=== PATIENT | male | born 1995 | race Caucasian/White ===

== ENCOUNTER 2021-05-31 22:48 | Emergency (ER) | payer BC, SELFPAY ==
[2021-05-31 22:48] VITALS: BP 96/55; PULSE 106; RESP 16; TEMP 37.1; O2SAT 100; BMI 33.7
[2021-05-31 23:57] LABS: Influenza A, PCR Not Detected (NotDetected); Influenza B, PCR Not Detected (NotDetected)
[2021-05-31 23:57] LABS: Microscopic, Urine URINE MICROSCOPIC (MICROSCOPIC)
[2021-06-01 00:02] LABS: Appearance,Urine CLEAR (Clear); Bilirubin,Urine Negative (Negative); Blood, Urine Negative (Negative); Color,Urine YELLOW (Yellow); Glucose,Urine (UA) Negative (Negative); Ketones,Urine Negative (Negative); Leukocyte Esterase,Urine Negative (Negative); Nitrate,Urine Negative (Negative); Protein,Urine TRACE (Negative)
[2021-06-01 00:17] LABS: Bacteria,Urine Trace /lpf; RBC,Urine Occasional #/hpf (0-3); WBC,Urine Occasional #/hpf (0-3)
--- NOTE | 2021-06-01 00:31 | XR_ITS ---
PROCEDURE INFORMATION: Exam: XR Chest Exam date and time: 06/01/2021 12:31 AM Age: 25 years old Clinical indication: Cough and fever and other: Chills; Patient HX: Fever, chills, body aches; Additional info: Congestion TECHNIQUE: Imaging protocol: XR of the chest. Views: 2 views. COMPARISON: No relevant prior studies available. FINDINGS: Lungs: Unremarkable. No consolidation. Pleural spaces: Unremarkable. No pleural effusion. No pneumothorax. Heart/Mediastinum: Unremarkable. No cardiomegaly. Bones/joints: Unremarkable. IMPRESSION: No acute findings.
[2021-06-01 00:53] LABS: Basophils % 0.4 % (0.1-2.0); Eosinophils % 0.5 % (0.1-12.0); Hematocrit 45.1 % (42.0-52.0); Hemoglobin 15.1 g/dL (14.1-18.0); Lymphocytes # 0.3 K/mm3 (0.7-4.5); Lymphocytes % 3.7 % (10-50); Mean Corpuscular HGB Conc 33.5 g/dL (31.8-35.4); Mean Corpuscular Hemoglobin 28.6 pg (27.0-31.2); Mean Corpuscular Volume 85.3 fl (80-94); Monocytes # 0.6 K/mm3 (0.1-1.0); Monocytes % 7.2 % (1.7-9.3); Neutrophils # 7.2 K/mm3 (1.8-7.8); Neutrophils % 88.2 % (37.0-80.0); Platelet Count 311 K/mm3 (142-424); Red Blood Count 5.28 M/mm3 (4.60-6.20); Red Cell Distribution Width 13.4 % (11.5-17.5); White Blood Count 8.1 K/mm3 (4.8-10.8)
[2021-06-01 00:57] LABS: Chloride 103 mmol/L (98-107); Sodium 139 mmol/L (136-145)
[2021-06-01 00:58] LABS: Potassium 4.4 mmoL/L (3.5-5.1)
[2021-06-01 01:00] LABS: Alanine Aminotransferase 33 U/L (12-78); Albumin Level 4.6 g/dl (3.5-5.0); Albumin/Globulin Ratio 1.5 (1.1-1.8); Alkaline Phosphatase 73 U/L (38-126); Anion Gap 14.4 mEq/L (5-15); Aspartate Amino Transferase 34 U/L (17-59); Bilirubin,Total 0.2 mg/dl (0.2-1.3); Blood Urea Nitrogen 15 mg/dl (9-20); Carbon Dioxide 26 mmol/L (22.0-30.0); Creatinine Clearance Estimated 173 mL/min (50-200); Estimated Glomerular Filt Rate 93 ml/min (>60); GFR (African American) 112 ML/MIN (>60); Globulin 3.1 g/dL (1.3-3.2); Total Protein,Serum 7.7 g/dl (6.3-8.2)
[2021-06-01 01:01] LABS: Calcium 9.3 mg/dl (8.4-10.2); Glucose 104 mg/dl (74-100)
[2021-06-01 01:02] LABS: MANUAL DIFFERENTIAL MANUAL DIFFERENTIAL (MANUAL DIFF)
[2021-06-01 01:09] LABS: Coronavirus 19, PCR Detected (NotDetected)
[2021-06-01 01:32] LABS: Erythrocyte Sedimentation Rate 4 mm/hr (0-15)
[2021-06-01 01:40] LABS: Lymphocytes % 11 % (10-50); Monocytes % 1 % (2-9); Neutrophils % 88 % (42-76); Platelet Estimate Normal; Stomatocytes 2+; Total Cells Counted 100
--- NOTE | 2021-06-01 01:42 | HMH.EDURI ---
ED Disposition Clinical Impression: COVID-19 Disposition: Home, Self-Care Condition on Discharge: Good Instructions: DI for COVID-19 (Suspected or Confirmed ) Additional Instructions: fluids and call pcp for follow up Referrals: Kristin Barbosa [Primary Care Provider] - - Critical Care Critical Care Time: No Attestation: On 05/31/21, the high probability of a clinically significant, sudden or life threatening deterioration of the following system(s) required my full and direct attention, intervention and personal management. The time I documented below is in addition to time spent performing reported procedures but includes the following listed in this critical care notation. Medical Decision Making - Medical Records Medical records reviewed: Yes: I reviewed the patient's medical records. - Arley Inquiry Pt receiving controlled substance: No Vital Signs: 05/31/21 22:48 Temperature 98.7 F Temperature Source Oral Pulse Rate [Right] 106 H Respiratory Rate 16 Blood Pressure [Right Radial Artery] 96/55 L Blood Pressure Mean [Right Radial Artery] 68 02 Sat by Pulse Oximetry 100 Oxygen Delivery Method Room Air - Lab Data Lab results reviewed: Yes: I reviewed the patient's lab results. Lab Results 05/31/21 23:46: SARS-CoV-2 (PCR) Detected A, Influenza A Untype (PCR) Not detected, Influenza Type B (PCR) Not detected 05/31/21 23:50: Urine Color Yellow, Urine Appearance Clear, Urine pH 8.0, Ur Specific [place] 1.020, Urine Protein Trace, Urine Glucose (UA) Negative, Urine Ketones Negative, Urine Blood Negative, Urine Nitrate Negative, Urine Bilirubin Negative, Urine Urobilinogen 1.0, Ur Leukocyte Esterase Negative, Urine RBC Occasional, Urine WBC Occasional, Ur Squamous Epith Cells None, Urine Bacteria Trace 06/01/21 00:40: WBC 8.1, RBC 5.28, Hgb 15.1, Hct 45.1, MCV 85.3, MCH 28.6, MCHC 33.5, RDW 13.4, Plt Count 311, MPV 8.0, Neut % (Auto) 88.2 H, Lymph % (Auto) 3.7 L, [place] % (Auto) 7.2, Eos % (Auto) 0.5, Baso % (Auto) 0.4, Neut # (Auto) 7.2, Lymph # (Auto) 0.3 L, [place] # (Auto) 0.6, Eos # (Auto) 0.0, Baso # (Auto) 0.0, Total Counted 100, Neutrophils % (Manual) 88 H, Lymphocytes % (Manual) 11, Monocytes % (Manual) 1 L, Platelet Estimate Normal, RBC Morphology Not Reportable, Stomatocytes 2+, ESR 4 06/01/21 00:40: Sodium 139, Potassium 4.4, Chloride 103, Carbon Dioxide 26, Anion Gap 14.4, BUN 15, Creatinine 1.00, Estimated Creat Clear 173, Estimated GFR 93, Est GFR ( Amer) 112, Glucose 104 H, Calcium 9.3, Total Bilirubin 0.2, AST 34, ALT 33, Alkaline Phosphatase 73, C-Reactive Protein 3.0, Total Protein 7.7, Albumin 4.6, Globulin 3.1, Albumin/Globulin Ratio 1.5 Result diagrams: 06/01/21 00:40 06/01/21 00:40 Orders (Tests/Meds): ED MEDICATIONS Generic Name Dose Route Start Last Admin Trade Name Freq PRN Reason Stop Dose Admin Sodium Chloride 1,000 mls @ 999 mls/hr 06/01/21 00:45 06/01/21 00:49 Sod Chlor 0.9% 1000ml Bag IV 06/01/21 01:45 999 mls/hr .Q1H1M DESIREE Administration Discontinued Medications Generic Name Dose Route Start Last Admin Trade Name Freq PRN Reason Stop Dose Admin Dexamethasone Sodium Phosphate 10 mg 06/01/21 00:33 06/01/21 00:48 Dexamethasone 4mg/Ml 5ml Mdv IV 06/01/21 00:34 10 mg ONCE ONE Administration Ketorolac Tromethamine 30 mg 06/01/21 00:33 06/01/21 00:48 Ketorolac 30mg/Ml Vial IV 06/01/21 00:34 30 mg ONCE ONE Administration ORDERS Category Date Time Status C-Reactive Protein Stat Lab 06/01/21 00:40 Results Comprehensive Metabolic Panel Stat Lab 06/01/21 00:40 Results Procalcitonin Stat Lab 06/01/21 00:40 Results - Radiology Data #1 Image(s): Chest Image Reviewed: Yes I have reviewed radiologist's interpretation Preliminary Findings: Normal/NAD Medical Decision Narrative: has covid-19 but will not require admit at this time URI/Sore Throat HPI - General Chief Complaint: Upper Respiratory Infection Stat
[2021-06-01 01:52] LABS: Procalcitonin 0.194 ng/mL (0.0-2.0)
[2021-06-01 02:22] VITALS: BP 115/78; PULSE 91; RESP 18; TEMP 37.1; O2SAT 100
== END 2021-06-01 02:23 | disposition home or self-care (01) ==
PROVIDERS: Emergency Provider Emergency Medicine; PCP Nurse Practitioner Family
DX: U07.1 COVID-19 (principal)
CPT/HCPCS: 71046; 80053; 81001; 84145; 85007; 85025; 85651; 86140; 96365; 96375; 99283; C9803; U0003; U0005

== ENCOUNTER 2025-02-07 22:14 | Observation (INO) | payer OTHER, SELFPAY ==
[2025-02-07 22:15] VITALS: BP 174/92; PULSE 94; RESP 18; TEMP 36.6; O2SAT 98; BMI 38.0
--- NOTE | 2025-02-07 22:15 | ECG_ITS ---
APPROVED REPORT Exam: Resting ECG HR:102 bpm ECG Measurements Heart Rate 102 AXES CA 143 P 35 QRSd 96 QRS 78 QT 314 T 20 QTc 373 Conclusion SINUS TACHYCARDIA ABNORMAL RHYTHM ECG No STEMI Electronically signed by : LITTLE DE ANDA, 02/08/2025 03:03:48
[2025-02-07 22:20] VITALS: PULSE 94
--- NOTE | 2025-02-07 23:08 | XR_ITS ---
PROCEDURE INFORMATION: Exam: XR Chest Exam date and time: 02/07/2025 11:09 PM Age: 29 years old Clinical indication: Sternal or substernal pain; Additional info: Cp TECHNIQUE: Imaging protocol: Radiologic exam of the chest. Views: 2 views. COMPARISON: CR XR CHEST 2V 06/01/2021 12:40 AM FINDINGS: Lungs: Normal pulmonary expansion. Pulmonary vasculature grossly normal. No gross pulmonary infiltrates or edema pattern. Pleural spaces: No pleural effusion. No pneumothorax. Heart/Mediastinum: Heart size normal. No tracheal/mediastinal shift. Bones/joints: No acute osseous abnormalities are identified. IMPRESSION: No acute thoracic process.
[2025-02-07 23:15] LABS: Albumin Level 4.9 g/dl (3.5-5.0); Basophils % 0.2 % (0.1-2.0); Chloride 104 mmol/L (98-107); Eosinophils % 0.3 % (0.1-12.0); Hematocrit 46.5 % (42.0-52.0); Hemoglobin 15.5 g/dL (14.1-18.0); Immature Granulocytes # 0.04 10^3uL; Immature Granulocytes % 0.4 %; Lymphocytes # 1.4 K/mm3 (0.7-4.5); Lymphocytes % 15.3 % (10-50); Mean Corpuscular HGB Conc 33.3 g/dL (31.8-35.4); Mean Corpuscular Hemoglobin 27.8 pg (27.0-31.2); Mean Corpuscular Volume 83.3 fl (80-94); Mean Platelet Volume 9.8 fl (7.4-10.4); Monocytes # 0.9 K/mm3 (0.1-1.0); Monocytes % 10.2 % (1.7-9.3); Neutrophils # 6.7 K/mm3 (1.8-7.8); Neutrophils % 73.6 % (37.0-80.0); Nucleated Red Blood Cells # 0 10^3/uL; Nucleated Red Blood Cells % 0 %; Platelet Count 323 K/mm3 (142-424); Red Blood Count 5.58 M/mm3 (4.60-6.20); Red Cell Distribution Width-SD 39.4 fL; Sodium 139 mmol/L (136-145)
[2025-02-07 23:16] LABS: Potassium 3.9 mmoL/L (3.5-5.1)
[2025-02-07 23:18] LABS: Alanine Aminotransferase 50 U/L (12-78); Albumin/Globulin Ratio 1.6 (1.1-1.8); Alkaline Phosphatase 72 U/L (38-126); Anion Gap 10.9 mEq/L (5-15); Aspartate Amino Transferase 39 U/L (17-59); Bilirubin,Total 0.5 mg/dl (0.2-1.3); Blood Urea Nitrogen 12 mg/dl (9-20); Carbon Dioxide 28 mmol/L (22.0-30.0); Creatinine Clearance Estimated 189 mL/min (50-200); Estimated Glomerular Filt Rate 90 ml/min (>60); GFR (African American) 108 ML/MIN (>60); Glucose 91 mg/dl (74-100); Total Protein,Serum 7.9 g/dl (6.3-8.2)
[2025-02-07] MEDS: ASPIRIN 81MG CHEWABLE TABLET 324 MG PO (23:18)
[2025-02-07] MEDS: hydrOXYzine pamoate 25MG CAPSULE 50 MG PO (23:18)
[2025-02-07 23:19] LABS: Calcium 9.4 mg/dl (8.4-10.2)
[2025-02-07] MEDS: KETOROLAC 30MG/ML VIAL 15 MG IV (23:19)
[2025-02-07] MEDS: LACTATED RINGERS 1000ML 1,000 ML 999 ML IV (23:19)
[2025-02-07 23:21] LABS: INR 0.94 (0.9-1.1); Prothrombin Time 10.5 seconds (10.1-12.5)
[2025-02-07 23:31] LABS: Troponin I < 0.01 ng/ml (0.00-0.034)
--- NOTE | 2025-02-07 23:33 | PC.NURSE ---
pt aox4, nad noted, rr even and non labored, skin pwd.
--- NOTE | 2025-02-07 23:52 | HMH.EDCP ---
Discharge Plan Disposition Patient Disposition: Admitted Condition: Good Clinical Impressions Clinical Impression: Chest pain Discharge ED Provider: Kiki Baron [facility] General Chief Complaint: Chest Pain Stated Complaint: chest pain Time Seen by Provider: 02/07/25 22:58 Mode of Arrival: Ambulatory Source of Information: Patient Description of Symptoms (Recalled from ER Triage Doc. by RN): pt presents with c/o intermittent midsternal chest pain that began approx 1 hour ago while walking at home. Pt reports associated clammy and cool skin during episodes with BG 73 at time of triage. History of Present Illness HPI narrative: 29-year-old male with no known chronic medical conditions, no daily medications presents to the ER with intermittent midsternal chest pain that started approximately 4 hours prior to arrival. Patient reports he also gets shaky and has been having a headache. No difficulty breathing, abdominal pain, nausea, vomiting, diarrhea, or other associated symptoms. Female at bedside reports she thinks anxiety may be contributing to his symptoms. He states he would get himself calm down and the symptoms would improve but then they would start again. He denies any personal cardiac history, no recent illness, no fevers or chills, no other associated symptoms. Patient reports at this time he just has lingering headache which is diffuse throughout the head on both sides, not sudden in onset, no numbness, tingling, or weakness. Related Data Home Medications ?Medication ?Instructions ?Recorded ?Confirmed No Known Home Medications 05/31/21 05/31/21 Allergies Allergy/AdvReac Type Severity Reaction Status Date / Time codeine Allergy Verified 05/31/21 23:43 [facility] Disclaimer: The information contained in this section may have been updated after the patient was seen, as this information can be updated by other users. Social History Smoking Status: Never smoker alcohol intake: never current occupational status: employed Travel in the last 8 weeks?: None Have you lived/traveled outside [place] in past 30 days?: No Contact w/someone who lives/traveled outside [place] past 30 days?: No Exposure to someone with infectious disease in past 14 days?: No Do you have a fever (greater than 100.4 F or 38 C)?: No Have you tested positive for COVID-19?: No Exposed to someone with COVID-19 in past 14 days?: No Do you have a sore throat?: No Do you have a cough?: No Do you have any weakness?: No Do you have any diarrhea?: No Are you experiencing any unusual bleeding?: No Do you have any muscle aches/pain?: No Do you have any abdominal pain?: No Are you experiencing loss of taste or smell?: No Other Medical History Have you received the Flu Vaccine for this season: No Have you received the Pneumonia Vaccine: No ROS Obtained: Yes Systems reviewed as appropriate & no additional complaints except as documented Per HPI Physical Exam General General appearance: alert and in no apparent distress Head Head exam: atraumatic and normocephalic Eye Eye exam: Present PERRL and EOMI; Absent nystagmus ENT ENT exam: Present mucous membranes moist Neck Neck exam: Present normal inspection and full ROM Chest Chest inspection: Present symmetric chest wall rise Respiratory Respiratory exam: Present normal lung sounds bilaterally; Absent respiratory distress, wheezes or stridor Cardiovascular Cardiovascular exam: Present regular rate and normal rhythm Abdominal Exam Abdominal exam: Present soft; Absent distention or tenderness Extremities Exam Extremities exam: Present full ROM; Absent edema Neurological Exam Neurological exam: Present alert and oriented X3; Absent motor sensory deficit Psychiatric Psychiatric exam: Present normal affect and normal mood Skin Skin exam: Present warm and dry HEART Score HEART Score HEART Score assessment performed?: Yes History (anamnesis): Slightly suspicious ECG: Normal Age: <45 years Risk factors: 1-2 risk factors Troponin: </= normal limit HEART Score: 1 Critical Care Critical Care Time Critical Care Time: No Medical Decision Making Arley Inquiry Pt receiving controlled substance: No Vital Signs Vital Signs: 02/07/25 22:15 02/07/25 22:20 02/08/25 00:30 Temperature 97.8 F Temperature Source Oral Pulse Rate 94 H 88 Pulse Rate [Radial] 94 H Respiratory Rate 18 21 Blood Pressure 124/79 Blood Pressure [Right Arm] 174/92 H Blood Pressure Mean [Right Arm] 119 Blood Pressure Position [Right Arm] Sitting 02 Sat by Pulse Oximetry 98 98 Oxygen Delivery Method Room Air Lab Data Labs: Lab Results 02/07/25 22:20: WBC 9.0, RBC 5.58, Hgb 15.5, Hct 46.5, MCV 83.3, MCH 27.8, MCHC 33.3, RDW 13.0, Plt Count 323, MPV 9.8, Neut % (Auto) 73.6, Lymph % (Auto) 15.3, [place] % (Auto) 10.2 H, Eos % (Auto) 0.3, Baso % (Auto) 0.2, Neut # (Auto) 6.7, Lymph # (Auto) 1.4, [place] # (Auto) 0.9, Eos # (Auto) 0.0, Baso # (Auto) 0.0, PT 10.5, INR 0.94, Sodium 139, Potassium 3.9, Chloride 104, Carbon Dioxide 28, Anion Gap 10.9, BUN 12, Creatinine 1.00, Estimated Creat Clear 189, Estimated GFR 90, Est GFR ( Amer) 108, Glucose 91, Calcium 9.4, Total Bilirubin 0.5, AST 39, ALT 50, Alkaline Phosphatase 72, Troponin I < 0.01, Total Protein 7.9, Albumin 4.9, Globulin 3.0, Albumin/Globulin Ratio 1.6 02/08/25 00:51: Troponin I 0.02 02/07/25 22:20 02/07/25 22:20 Response Orders (Tests/Meds): ED MEDICATIONS Generic Name Dose Route Start Last Admin Trade Name Freq PRN Reason Stop Dose Admin Acetaminophen 650 mg 02/08/25 02:33 Acetaminophen 325mg Tab PO 03/10/25 02:32 Q4HP PRN Fever or Mild Pain (1-3) Ibuprofen 400 mg 02/08/25 02:33 Ibuprofen 400 Mg Tablet PO 03/10/25 02:32 Q6HP PRN Mild Pain (1-3) Ondansetron HCl 4 mg 02/08/25 02:33 Ondansetron 4mg/2ml Vial IV 03/10/25 02:32 Q8HP PRN Nausea Pantoprazole Sodium 40 mg 02/08/25 21:00 Pantoprazole 40mg Tablet PO 03/10/25 20:59 HS DESIREE Discontinued Medications Generic Name Dose Route Start Last Admin Trade Name Freq PRN Reason Stop Dose Admin Aspirin 324 mg 02/07/25 23:09 02/07/25 23:18 Aspirin 81mg Chewable Tablet PO 02/07/25 23:10 324 mg ONCE ONE Administration Hydroxyzine Pamoate 50 mg 02/07/25 23:08 02/07/25 23:18 Hydroxyzine Pamoate 25mg Capsule PO 05/31/25 23:09 50 mg ONCE ONE Administration Lactated Ringer's 1,000 mls @ 999 mls/hr 02/07/25 23:08 02/07/25 23:19 Lactated Ringer's 1000 Ml Bag IV 02/08/25 00:08 999 mls/hr .Q1H1M ONE Administration Ketorolac Tromethamine 15 mg 02/07/25 23:08 02/07/25 23:19 Ketorolac 30mg/Ml Vial IV 02/07/25 23:09 15 mg ONCE ONE Administration ORDERS Category Date Time Status CXR 2 view (NOT portable) [XR chest 2V] Stat Exams 02/07/25 23:08 Completed CBC w/Auto Diff [Complete Blood Count Auto Diff] Stat Lab 02/07/25 22:20 Completed CMP [Comprehensive Metabolic Panel] Stat Lab 02/07/25 22:20 Completed D-Dimer Stat Lab 02/08/25 02:07 Received PT INR [Prothrombin Time INR] Stat Lab 02/07/25 22:20 Completed Trop I [Troponin I] Stat Lab 02/07/25 22:20 Completed Troponin I Q3H Lab 02/08/25 00:51 Completed Troponin I Q3H Lab 02/08/25 05:15 Ordered MDM Narrative Medical Decision Narrative: In summary, this 29-year-old male presents to the emergency department today with chest pain, headache. On initial evaluation patient is hemodynamically stable, afebrile, GCS 15, no red flag symptoms of headache currently not having any chest pain, lungs clear bilaterally, cardiopulmonary exam benign. No neurologic deficits. No peripheral edema. Abdominal exam benign. Differential diagnosis includes but is not limited to ACS, considered PE but patient is PERC negative with heart rate in the 90s, also considered esophageal spasm, anxiety, tension headache, migraine headache, electrolyte abnormality, dehydration, among others. Based on these concerns, I ordered cardiac workup, chest x-ray, symptomatic management for patient's headache. ECG personally interpreted demonstrates sinus tachycardia, rate 102, normal axis, normal IL and QTc, no STEMI. Patient received Toradol, aspirin, hydroxyzine, IV fluids, for treatment. Labs personally reviewed demonstrate no leukocytosis or anemia, platelets normal, PT/INR normal, CMP nonactionable, initial troponin undetectably low less than 0.01. Patient was placed in the ED observation at midnight for continued monitoring and repeat troponins to rule out evolving TN and preclude unnecessary admission. XR personally interpreted demonstrates no acute intrathoracic abnormality, see radiology for final interpretation. 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 He reports no chest pain, reports his headache has improved. Repeat troponin 0.02 which is a slight increase. He is not actively having chest pain, this does increase my suspicion for potential cardiac etiology. I discussed this with the patient and recommend admission for serial troponins and continued cardiac monitoring. He is agreeable to this. When I told him about these findings he became tachycardic and on further conversation he states he has had a little bit of a cough and some pain with deep inspiration so D-dimer was added to workup despite having extremely low suspicion for PE. Prior to the results of this, I contacted the hospitalist for admission. We discussed this case and the patient has been accepted for admission. Hospitalist did request full respiratory panel since the patient's child at home has an upper respiratory virus. This was added to workup. Patient was admitted in stable condition.
[2025-02-08] VITALS (11 sets, daily range): BP systolic 121–137; BP diastolic 61–93; PULSE 87–110; RESP 16–22; TEMP 36.6–37.9; O2SAT 95–100; BMI 39.1; BMI 39.4
--- NOTE | 2025-02-08 00:52 | PC.NURSE ---
repeat trop drawn and sent to the lab at this time.
[2025-02-08 01:29] LABS: Troponin I 0.02 ng/ml (0.00-0.034)
[2025-02-08 02:26] LABS: D-Dimer 0.57 ug/mL (0.0-0.5)
[2025-02-08 02:38] LABS: Adenovirus,PCR Not Detected (NotDetected); Bordetella Pertussis Not Detected (NotDetected); Chlamydophila Pneumoniae, PCR Not Detected (NotDetected); Coronavirus 19, PCR Not Detected (NotDetected); Coronavirus 229E Not Detected (NotDetected); Coronavirus NL63 Not Detected (NotDetected); Coronavirus OC43 Not Detected (NotDetected); Coronovirus HKU1,PCR Not Detected (NotDetected); Human Metapneumovirus Not Detected (NotDetected); Influenza A, PCR Not Detected (NotDetected); Influenza AH1, 2009 Not Detected (NotDetected); Influenza AH1, PCR Not Detected (NotDetected); Influenza AH3,PCR Not Detected (NotDetected); Influenza B, PCR Not Detected (NotDetected); Mycoplasma Pneumoniae, PCR Not Detected (NotDetected); Parainfluenza 1, PCR Not Detected (NotDetected); Parainfluenza 2, PCR Not Detected (NotDetected); Parainfluenza 3, PCR Not Detected (NotDetected); Parainfluenza 4, PCR Not Detected (NotDetected); Respiratory Syncytial Virus Not Detected (NotDetected); Rhinovirus/Enterovirus Not Detected (NotDetected)
--- NOTE | 2025-02-08 02:45 | PC.NURSE ---
Report given to myles pratt
--- NOTE | 2025-02-08 04:07 | P.HP_ITS ---
<Statement entered by Mateo Villanueva MD - 02/08/25 18:22> Rounded on patient after nurse practitioner. Personally examined and interviewed patient. Agree with exam findings and care plan as documented. Serial troponins unremarkable. EKG reviewed with no ST changes either elevation or depression. No events on telemetry. Blood pressure mildly elevated, started on carvedilol with improvement in discomfort. Patient stable discharge home with close outpatient follow-up with cardiology. Recommend adjustments to blood pressure regimen. Labs on presentation with no abnormalities. All nonactionable. Kidney function normal. Cell lines normal. No abnormalities with liver function. ACS of low concern at this time. History of Present Illness *Admission Date: 02/08/25 *Reason for visit:: Sudden onset of chest pain with severe feeling of head being squeezed *History of present illness: Mild this patient had been output charting but he is in a tractor in a confined space with That has closing doors air condition. Having a little problem with the regalado dog he got out of the tractor and went to the regalado hog straightened up the wheel and suddenly had sudden onset of chest pain felt terrible head felt like it was being squeezed. This did not let up so he told his and came to the emergency room. Patient relates a recent history of flying to [facility] [place] hunting flying back this was approximately 2 weeks ago, on arriving at home approximately week ago the the son came up positive rhinovirus with croup was actually brought to our emergency room. 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 He is in good physical condition he states he does not smoke is only a very limited social drink. States that his weight has remained basically the same. While being in the ER slight increase in troponin, after talking with the ER physician to make sure that this troponin did not continue to elevate. D-dimer was only slightly elevated I do not see any signs symptoms that I would be worried about a PE at this time.. Question whether or not this is early viral symptoms as at one time did check his temperature was 100.3 but basically running 99.7. After talking with him and his he is not the kind of person that even sees doctors much less would come to the emergency room, his said he must of really feeling bad for him to tell me to bring him here. At this point in time patient is stable but unsure of what is causing his present symptoms that brought him to the ER [facility] Disclaimer: The information contained in this section may have been updated after the patient was seen, as this information can be updated by other users. Medical History (Updated 02/08/25 @ 04:28 by Gavino Rangel APRN) COVID-19 Family History (Updated 02/08/25 @ 04:11 by Gavino Rangel APRN) Mother Heart attack Grandfather Heart attack Social History Smoking Status: Never smoker alcohol intake: never current occupational status: employed Travel in the last 8 weeks?: None Have you lived/traveled outside [place] in past 30 days?: No Contact w/someone who lives/traveled outside US past 30 days?: No Exposure to someone with infectious disease in past 14 days?: No Do you have a fever (greater than 100.4 F or 38 C)?: No Have you tested positive for COVID-19?: No Exposed to someone with COVID-19 in past 14 days?: No Do you have a sore throat?: No Do you have a cough?: No Do you have any weakness?: No Do you have any diarrhea?: No Are you experiencing any unusual bleeding?: No Do you have any muscle aches/pain?: No Do you have any abdominal pain?: No Are you experiencing loss of taste or smell?: No Other Medical History Have you received the Flu Vaccine for this season: No Have you received the Pneumonia Vaccine: No Review of Systems Review of Systems Review of systems:: pertinent systems reviewed and negative unless documented below Constitutional Constitutional: Reports as per HPI and Reports body ache(s) Eyes Eyes: Reports as per HPI ENT Ears, Nose, Mouth, and Throat: Reports as per HPI Comments: Did have headache felt like his head was being squeezed, *Cardiovascular Cardiovascular: Reports chest pain and Reports chest pain at rest *Respiratory Respiratory: Reports as per HPI *Gastrointestinal Gastrointestinal: Reports as per HPI *Genitourinary Genitourinary: Reports as per HPI *Musculoskeletal Musculoskeletal: Reports as per HPI Integumentary/Breasts Skin/Breast: Reports as per HPI *Neurologic Neurologic: Reports as per HPI Psychiatric Psychiatric: Reports as per HPI Endocrine Endocrine: Reports as per HPI Hematologic/Lymphatic Hematologic/Lymphatic: Reports as per HPI Allergic/Immunologic Allergic/Immunologic: Reports as per HPI Meds Home Medications and Allergies Home Medications ?Medication ?Instructions ?Recorded ?Confirmed ?Type No Known Home Medications 05/31/21/2 09/30 History New Prescriptions to Start Prescriptions: Allergies Allergy/AdvReac Type Severity Reaction Status Date / Time codeine Allergy Verified 05/31/21 23:43 Exam Data for Last 24 hours Vital signs and Labs for Last 24 Hours: Temp Pulse Resp BP Pulse Ox O2 Del Method 99.1 F 98 H 16 136/64 100 Room Air 02/08/25 03:31 02/08/25 03:31 02/08/25 03:31 02/08/25 03:31 02/08/25 03:31 02/08/25 03:31 Laboratory Results - last 24 hr 02/07/25 22:20: WBC 9.0, RBC 5.58, Hgb 15.5, Hct 46.5, MCV 83.3, MCH 27.8, MCHC 33.3, RDW 13.0, Plt Count 323, MPV 9.8, Neut % (Auto) 73.6, Lymph % (Auto) 15.3, [place] % (Auto) 10.2 H, Eos % (Auto) 0.3, Baso % (Auto) 0.2, Neut # (Auto) 6.7, Lymph # (Auto) 1.4, [place] # (Auto) 0.9, Eos # (Auto) 0.0, Baso # (Auto) 0.0, PT 10.5, INR 0.94, Sodium 139, Potassium 3.9, Chloride 104, Carbon Dioxide 28, Anion Gap 10.9, BUN 12, Creatinine 1.00, Estimated Creat Clear 189, Estimated GFR 90, Est GFR ( Amer) 108, Glucose 91, Calcium 9.4, Total Bilirubin 0.5, AST 39, ALT 50, Alkaline Phosphatase 72, Troponin I < 0.01, Total Protein 7.9, Albumin 4.9, Globulin 3.0, Albumin/Globulin Ratio 1.6 02/08/25 00:51: Troponin I 0.02 02/08/25 02:07: D-Dimer 0.57 H 02/08/25 02:32: Chlamy pneumoniae PCR Not detected, Adenovirus (PCR) Not detected, B. pertussis DNA (PCR) Not detected, Coronavirus OC43 (PCR) Not detected, Coronavirus HKU1 (PCR) Not detected, Coronavirus 229E (PCR) Not detec patricia, SARS-CoV-2 (PCR) Not detected, Coronavirus NL63 (PCR) Not detected, Human Metapneumovir PCR Not detected, Influenza A (H1) PCR Not detected, Influ A (H1N1/09) PCR Not detected, Influenza A (H3) PCR Not detected, Influenza Type A (PCR) Not detected, Influenza Type B (PCR) Not detected, M. pneumoniae (PCR) Not detected, Parainfluenza 1 (PCR) Not detected, Parainfluenza 2 (PCR) Not detected, Parainfluenza 3 (PCR) Not detected, Parainfluenza 4 (PCR) Not detected, RSV (PCR) Not detected, Entero/Rhino (PCR) Not detected I & O for Last 24 hours: Intake & Output 02/05/25 02/06/25 02/07/25 02/08/25 05:59 05:59 05:59 05:59 Weight 273 lb 4 oz Microbiology Reports for the Last 24 Hours: Negative for respiratory panel Constitutional Constitutional: mild distress Comments: Chest pain not near as bad as before, noted feeling warm temperature was 100.3 when checked in the ER *Routine HEENT Exam Head: Present normocephalic and atraumatic Eye: Present EOMI and PERRL ENT: Present mucous membranes moist, oropharynx clear and dentition normal *Routine Neck Exam Neck: Present supple and full ROM Comments: No new neck rigidity found Routine Chest/Breast/Axilla Exam Comments: No tenderness to palpation of chest wall *Routine Respiratory Exam Respiratory: Present CTA bilaterally Comments: Lungs were clear there was a slight dry cough from time to time *Routine Cardiovascular Exam Cardiovascular: Present RRR, Normal S1 and Normal S2 *Routine Abdominal Exam Abdominal: Present soft, normoactive bowel sounds and obese Comments: No tenderness found upon palpation of the abdomen *Routine Rectal Exam Rectal:: deferred *Routine Genitalia Exam Genitalia:: deferred *Routine Extremities Exam Extremities: Present full ROM, pulses intact and normal capillary refill Comments: No tenderness or edema to any of the extremities Routine Back/Spine/Pelvis Exam Back/Spine: Present full ROM Comments: No tenderness found upon exam patient is able to stand and walk without difficulty *Routine Skin Exam Skin: Present intact, dry, warm and normal turgor Comments: No rashes or any signs of ecchymosis *Routine Neurological Exam Neurological: Present alert, oriented X3, CN II-XII intact, moving all extremities, normal tone, vision grossly intact, hearing grossly intact and normal speech Comments: No neurological deficits found Routine Psychiatric Exam Psychiatric: Present normal affect, normal thought process, cooperative, good insight and good judgment H&P: Result Impressions 1. Viral illness possible, was on airplane flight across country in the last 2 weeks to rule out DVT that may have caused the PE, family history of [place] patient had slightly elevated troponin Imaging and Cardiology Chest x-ray: Status: image reviewed by me Additional comments: No active disease Assessment and Plan *Assessment and plan (1) Chest pain: Status: Acute Qualifiers: Chest pain type: other chest pain Qualified Code(s): R07.89 - Other chest pain Category: Medical Code(s): R07.9 - Chest pain, unspecified (2) Fever: Status: Acute Qualifiers: Fever type: unspecified Qualified Code(s): R50.9 - Fever, unspecified Category: Medical Code(s): R50.9 - Fever, unspecified Plan 1. Patient be admitted to the floor troponin series will continue. Continue to evaluate the patient for any sign of viral illness. If troponins are normal should be able to discharge the patient in the morning. But did need to evaluate the since had [place] trip [place] the nation and back making sure that there was no sign of DVT that led to a PE.
[2025-02-08 06:38] LABS: Troponin I < 0.01 ng/ml (0.00-0.034)
--- NOTE | 2025-02-08 08:07 | P.DS_ITS ---
General Admission date:: 02/08/25 Discharge date: 02/08/25 HPI HPI HPI: Mild this patient had been output charting but he is in a tractor in a confined space with That has closing doors air condition. Having a little problem with the regalado dog he got out of the tractor and went to the regalado hog straightened up the wheel and suddenly had sudden onset of chest pain felt terrible head felt like it was being squeezed. This did not let up so he told his and came to the emergency room. Patient relates a recent history of flying to [facility] [employer] hunting flying back this was approximately 2 weeks ago, on arriving at home approximately week ago the the son came up positive rhinovirus with croup was actually brought to our emergency room. 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 He is in good physical condition he states he does not smoke is only a very limited social drink. States that his weight has remained basically the same. While being in the ER slight increase in troponin, after talking with the ER physician to make sure that this troponin did not continue to elevate. D-dimer was only slightly elevated I do not see any signs symptoms that I would be worried about a PE at this time.. Question whether or not this is early viral symptoms as at one time did check his temperature was 100.3 but basically running 99.7. After talking with him and his he is not the kind of person that even sees doctors much less would come to the emergency room, his said he must of really feeling bad for him to tell me to bring him here. At this point in time patient is stable but unsure of what is causing his present symptoms that brought him to the ER Hospital Course Hospital Course Hospital Course: Patient admitted for chest pain. Workup in the ER with EKG that showed no ST elevations or depressions. Serial troponins less than 0.02 at 0, 3, 6 hours. Monitored on telemetry with no events. Patient is a non-smoker, nondiabetic. Noted to have slight elevation in blood pressure and heart rate. Started on carvedilol. Responded well to 3.125 mg dose, stated he felt better. Family states that at home sometimes his blood pressure gets up to 180 systolic. Will continue carvedilol 6.25 mg twice daily. Recommend close follow-up with cardiology for further evaluation as an outpatient. Labs nonactionable. Low concern for ACS. Stable to discharge home. Exam Data for Last 24 hours Vital signs and Labs for Last 24 Hours: Temp Pulse Resp BP Pulse Ox O2 Del Method 99.6 F 110 H 16 134/73 97 Room Air 02/08/25 04:00 02/08/25 04:00 02/08/25 04:00 02/08/25 04:00 02/08/25 04:00 02/08/25 08:00 Laboratory Results - last 24 hr 02/07/25 22:20: WBC 9.0, RBC 5.58, Hgb 15.5, Hct 46.5, MCV 83.3, MCH 27.8, MCHC 33.3, RDW 13.0, Plt Count 323, MPV 9.8, Neut % (Auto) 73.6, Lymph % (Auto) 15.3, [place] % (Auto) 10.2 H, Eos % (Auto) 0.3, Baso % (Auto) 0.2, Neut # (Auto) 6.7, Lymph # (Auto) 1.4, [place] # (Auto) 0.9, Eos # (Auto) 0.0, Baso # (Auto) 0.0, PT 10.5, INR 0.94, Sodium 139, Potassium 3.9, Chloride 104, Carbon Dioxide 28, Anion Gap 10.9, BUN 12, Creatinine 1.00, Estimated Creat Clear 189, Estimated GFR 90, Est GFR ( Amer) 108, Glucose 91, Calcium 9.4, Total Bilirubin 0.5, AST 39, ALT 50, Alkaline Phosphatase 72, Troponin I < 0.01, Total Protein 7.9, Albumin 4.9, Globulin 3.0, Albumin/Globulin Ratio 1.6 02/08/25 00:51: Troponin I 0.02 02/08/25 02:07: D-Dimer 0.57 H 02/08/25 02:32: Chlamy pneumoniae PCR Not detected, Adenovirus (PCR) Not detected, B. pertussis DNA (PCR) Not detected, Coronavirus OC43 (PCR) Not detected, Coronavirus HKU1 (PCR) Not detected, Coronavirus 229E (PCR) Not detected, SARS-CoV-2 (PCR) Not detected, Coronavirus NL63 (PCR) Not detected, Human Metapneumovir PCR Not detected, Influenza A (H1) PCR Not detected, Influ A (H1N1/09) PCR Not detected, Influenza A (H3) PCR Not detected, Influenza Type A (PCR) Not detected, Influenza Type B (PCR) Not detected, M. pneumoniae (PCR) Not detected, Parainfluenza 1 (PCR) Not detected, Parainfluenza 2 (PCR) Not detected, Parainfluenza 3 (PCR) Not detected, Parainfluenza 4 (PCR) Not detected, RSV (PCR) Not detected, Entero/Rhino (PCR) Not detected 02/08/25 05:45: Troponin I < 0.01 I & O for Last 24 hours: Intake & Output 02/05/25 02/06/25 02/07/25 02/08/25 23:59 23:59 23:59 23:59 Weight 120.202 kg 125.101 kg Constitutional Constitutional: no acute distress and obese *Routine HEENT Exam Head: Present normocephalic Eye: Present EOMI and PERRL ENT: Present mucous membranes moist *Routine Neck Exam Neck: Present supple; Absent lymphadenopathy *Routine Respiratory Exam Respiratory: Present CTA bilaterally *Routine Cardiovascular Exam Cardiovascular: Present RRR *Routine Abdominal Exam Abdominal: Present soft and normoactive bowel sounds; Absent tenderness *Routine Rectal Exam Patient deferred: visual exam *Routine Exam Patient deferred: penile exam *Routine Extremities Exam Extremities: Absent cyanosis, clubbing or edema *Routine Skin Exam Skin: Present warm; Absent rash *Routine Neurological Exam Neurological: Present alert, oriented X3 and moving all extremities; Absent altered mental status Results Data Completed and Pending Labs on day of discharge: Labs from last 24 hours 02/08/25 02/08/25 02/08/25 05:45 02:32 02:07 WBC RBC Hgb Hct MCV MCH MCHC RDW Plt Count MPV Neut % (Auto) Lymph % (Auto) [place] % (Auto) Eos % (Auto) Baso % (Auto) Neut # (Auto) Lymph # (Auto) [place] # (Auto) Eos # (Auto) Baso # (Auto) PT INR D-Dimer 0.57 H Sodium Potassium Chloride Carbon Dioxide Anion Gap BUN Creatinine Estimated Creat Clear Estimated GFR Est GFR ( Amer) Glucose Calcium Total Bilirubin AST ALT Alkaline Phosphatase Troponin I < 0.01 Total Protein Albumin Globulin Albumin/Globulin Ratio Chlamy pneumoniae PCR Not detected Adenovirus (PCR) Not detected B. pertussis DNA (PCR) Not detected Coronavirus OC43 (PCR) Not detected Coronavirus HKU1 (PCR) Not detected Coronavirus 229E (PCR) Not detected SARS-CoV-2 (PCR) Not detected Coronavirus NL63 (PCR) Not detected Human Metapneumovir PCR Not detected Influenza A (H1) PCR Not detected Influ A (H1N1/) PCR Not detected Influenza A (H3) PCR Not detected Influenza Type A (PCR) Not detected Influenza Type B (PCR) Not detected M. pneumoniae (PCR) Not detected Parainfluenza 1 (PCR) Not detected Parainfluenza 2 (PCR) Not detected Parainfluenza 3 (PCR) Not detected Parainfluenza 4 (PCR) Not detected RSV (PCR) Not detected Entero/Rhino (PCR) Not detected 02/08/25 02/07/25 00:51 22:20 WBC 9.0 RBC 5.58 Hgb 15.5 Hct 46.5 MCV 83.3 MCH 27.8 MCHC 33.3 RDW 13.0 Plt Count 323 MPV 9.8 Neut % (Auto) 73.6 Lymph % (Auto) 15.3 [place] % (Auto) 10.2 H Eos % (Auto) 0.3 Baso % (Auto) 0.2 Neut # (Auto) 6.7 Lymph # (Auto) 1.4 [place] # (Auto) 0.9 Eos # (Auto) 0.0 Baso # (Auto) 0.0 PT 10.5 INR 0.94 D-Dimer Sodium 139 Potassium 3.9 Chloride 104 Carbon Dioxide 28 Anion Gap 10.9 BUN 12 Creatinine 1.00 Estimated Creat Clear 189 Estimated GFR 90 Est GFR ( Amer) 108 Glucose 91 Calcium 9.4 Total Bilirubin 0.5 AST 39 ALT 50 Alkaline Phosphatase 72 Troponin I 0.02 < 0.01 Total Protein 7.9 Albumin 4.9 Globulin 3.0 Albumin/Globulin Ratio 1.6 Chlamy pneumoniae PCR Adenovirus (PCR) B. pertussis DNA (PCR) Coronavirus OC43 (PCR) Coronavirus HKU1 (PCR) Coronavirus 229E (PCR) SARS-CoV-2 (PCR) Coronavirus NL63 (PCR) Human Metapneumovir PCR Influenza A (H1) PCR Influ A (H1N1/09) PCR Influenza A (H3) PCR Influenza Type A (PCR) Influenza Type B (PCR) M. pneumoniae (PCR) Parainfluenza 1 (PCR) Parainfluenza 2 (PCR) Parainfluenza 3 (PCR) Parainfluenza 4 (PCR) RSV (PCR) Entero/Rhino (PCR) DS: Diagnosis Discharge Diagnosis (1) Chest pain: Status: Acute Code(s): R07.9 - Chest pain, unspecified Qualifiers: Chest pain type: other chest pain Qualified Code(s): R07.89 - Other chest pain (2) Fever: Status: Resolved Code(s): R50.9 - Fever, unspecified Qualifiers: Fever type: unspecified Qualified Code(s): R50.9 - Fever, unspecified (3) HTN (hypertension): Status: Acute Code(s): I10 - Essential (primary) hypertension (4) Obesity (BMI 30-39.9): Status: Acute Code(s): E66.9 - Obesity, unspecified Meds Home Medications and Allergies Home Medications ?Medication ?Instructions ?Recorded ?Confirmed ?Type carvedilol 6.25 mg tablet (Coreg) 6.25 mg PO BID #60 t abs 02/08/25 Rx loratadine 10 mg tablet (Claritin) 10 mg PO DAILY PRN Allergies 02/08/25 02/08/25 History New Prescriptions to Start Prescriptions: carvedilol [Coreg] Mateo Villanueva Allergies Allergy/AdvReac Type Severity Reaction Status Date / Time codeine Allergy Verified 05/31/21 23:43 Discharge Plan Disposition Patient Disposition: Home, Self-Care Condition: Good Follow up Plan Follow up with: Lisseth Aguilar APRN [Nurse Practitioner, Cardiology] - 1 week Referral Note: Please call for follow up appointment or walk in to clinic at 1pm on Sunday Kristin Barbosa [Primary Care Provider, Medical] - Enter time for follow up Referral Note: Please call for follow up appointment Prescriptions/Medication Reconciliation: New carvedilol [Coreg] 6.25 mg tablet 6.25 mg PO BID Qty: 60 0RF Rx Instructions: must administer with a meal/food Continued loratadine [Claritin] 10 mg Tablet 10 mg PO DAILY PRN (Reason: Allergies) Problem Reconciliation Problems Reviewed?: Yes Patient Discharge Instructions ACTIVITY: Continue current activity DIET: continue same diet Patient Instructions: DI for Chest Pain Print Language: Chinese Providers Primary Care Provider: Kristin Barbosa Admit Provider: Mateo Villanueva Attending Provider: Mateo Villanueva
[2025-02-08] MEDS: ACETAMINOPHEN 325MG TAB 650 MG PO (09:10)
[2025-02-08] MEDS: CARVEDILOL 3.125MG TABLET 3.125 MG PO (09:10)
[2025-02-08] MEDS: CARVEDILOL 6.25MG TABLET 6.25 MG PO (12:40)
--- NOTE | 2025-02-09 14:48 | CARE MANAGER ---
Contacted patient related to hospital discharge. He states he feels about the same. He followed up with cardiology today. He has new medication and denies questions or concerns. GAIL Jones
== END 2025-02-08 12:56 | disposition home or self-care (01) ==
LOC: ER 22:41 → 2ND 02-08 02:20
PROVIDERS: Emergency Medicine; Admitting Provider Internal Medicine Adolescent Medicine; Emergency Provider Student in an Organized Health Care Education/Training Program; PCP Nurse Practitioner Family; Visit Provider Internal Medicine Adolescent Medicine
DX: R07.89 Other chest pain (principal); R50.9 Fever, unspecified; I10 Essential (primary) hypertension; E66.9 Obesity, unspecified; R00.0 Tachycardia, unspecified; Z68.39 Body mass index [BMI] 39.0-39.9, adult; Z79.899 Other long term (current) drug therapy; Z88.5 Allergy status to narcotic agent; Z82.49 Family history of ischemic heart disease and other diseases of the circulatory system
CPT/HCPCS: 96361; 96374; 0223U; 36415; 71046; 80053; 84484; 85025; 85378; 85610; 87633; 93005; G0378; J1885; J7120

== ENCOUNTER 2025-02-09 15:37 | Outpatient (CLI) | payer OTHER, SELFPAY ==
--- NOTE | 2025-02-09 15:45 | CT_ITS ---
FINAL REPORT TECHNIQUE: Axial imaging of the chest is obtained after the administration of contrast. 3-D MIP reformatted images were also obtained and reviewed per PE protocol. CLINICAL HISTORY: Elevated d-dimer, cp, shortness of breath COMPARISON: None FINDINGS: The pulmonary arteries are well filled. There is no evidence of pulmonary embolus. There is no aortic dissection. Heart size is normal. There is no mediastinal, hilar, or axillary lymphadenopathy. The lungs are clear. There is no pleural or pericardial effusion. Limited evaluation of the upper abdomen is without acute abnormality. No acute osseous abnormality. IMPRESSION: No evidence of pulmonary embolism or aortic dissection. Reviewed, Interpreted and Dictated by Luisa Trent MD Transcribed by Meghan Sanchez Authenticated and [facility]
[2025-02-09] MEDS: 0.9 % SODIUM CHLORIDE 50 ML VIAL IV (16:14)
[2025-02-09] MEDS: SODIUM CHLORIDE 0.9% 10ML SYR (RAD ONLY) 10 ML IV (16:14)
[2025-02-09] MEDS: IOPAMIDOL-370 (76%);100ML BOTTLE 75 ML IV (16:14)
== END 2025-02-09 23:59 | disposition home or self-care (01) ==
LOC: RAD 15:38
PROVIDERS: PCP Nurse Practitioner Family; Visit Provider Physician Assistant
DX: R06.00 Dyspnea, unspecified (principal); R79.89 Other specified abnormal findings of blood chemistry; R07.89 Other chest pain
CPT/HCPCS: 71275; Q9967

== ENCOUNTER 2025-02-12 19:17 | Observation (INO) | payer OTHER, SELFPAY ==
[2025-02-12] VITALS (9 sets, daily range): BP systolic 121–142; BP diastolic 79–95; PULSE 65–75; RESP 11–20; TEMP 36.6–36.9; O2SAT 95–100; BMI 38.0; BMI 37.3
--- NOTE | 2025-02-12 19:21 | ECG_ITS ---
APPROVED REPORT Exam: Resting ECG HR:73 bpm ECG Measurements Heart Rate 73 AXES MI 165 P 28 QRSd 93 QRS 43 QT 350 T 16 QTc 376 Conclusion SINUS RHYTHM NORMAL ECG Electronically signed by : LITTLE DE ANDA, 02/14/2025 03:54:58
--- NOTE | 2025-02-12 19:33 | HMH.EDGENADL ---
Discharge Plan Disposition Patient Disposition: Admitted Clinical Impressions Clinical Impression: Chest pain Qualifiers: Chest pain type: other chest pain Qualified Code(s): R07.89 - Other chest pain Discharge ED Provider: Conrado Munoz General Adult HPI <GERONIMO Alvarado - Last Filed: 02/12/25 21:39> General Chief complaint: Chest Pain Stated complaint: Chest Pain Time Seen by Provider: 02/12/25 19:19 Mode of Arrival: Ambulatory Source of Information: Patient Description of Symptoms (Recalled from ER Triage Doc. by RN): Patient was here Sunday- having chest pain which hurts so bad it makes him puke- ongoing for 2 hours- sharp pain in center of chest- only history is allergies per patient History of Present Illness HPI narrative: Patient presents for evaluation of chest pain. Patient has had ongoing chest pain since Sunday. He ultimately was seen in the emergency department admitted and ultimately discharged on Sunday with follow-up with cardiology clinic on Sunday. Patient reports that he is continuing to have chest pain has decreased exercise tolerance denies fever chills hemoptysis hematochezia melena nausea vomiting diarrhea recent illness. Related Data Home Medications ?Medication ?Instructions ?Recorded ?Confirmed loratadine 10 mg tablet (Claritin) 10 mg PO DAILY PRN Allergies 02/08/25 02/09/25 Previous Rx's ?Medication ?Instructions ?Recorded carvedilol 6.25 mg tablet (Coreg) 6.25 mg PO BID #60 tabs 02/08/25 Allergies Allergy/AdvReac Type Severity Reaction Status Date / Time codeine Allergy Verified 02/09/25 13:28 PFSH <GERONIMO Alvarado - Last Filed: 02/12/25 21:39> [facility] Disclaimer: The information contained in this section may have been updated after the patient was seen, as this information can be updated by other users. Medical History (Updated 02/12/25 @ 21:02 by GERONIMO Alvarado) Other chest pain Elevated d-dimer COVID-19 Family History Mother Heart attack Grandfather Heart attack Social History Smoking Status: Never smoker alcohol intake: never current occupational status: employed Travel in the last 8 weeks?: None Have you lived/traveled outside US in past 30 days?: No Contact w/someone who lives/traveled outside US past 30 days?: No Exposure to someone with infectious disease in past 14 days?: No Do you have a fever (greater than 100.4 F or 38 C)?: No Have you tested positive for COVID-19?: No Exposed to someone with COVID-19 in past 14 days?: No Do you have a sore throat?: No Do you have a cough?: No Do you have any weakness?: No Do you have any diarrhea?: No Are you experiencing any unusual bleeding?: No Do you have any muscle aches/pain?: No Do you have any abdominal pain?: No Are you experiencing loss of taste or smell?: No Other Medical History Have you received the Flu Vaccine for this season: No Have you received the Pneumonia Vaccine: No <GERONIMO Alvarado - Last Filed: 02/12/25 21:39> ROS Obtained: Yes Systems reviewed as appropriate & no additional complaints except as documented Physical Exam <GERONIMO Alvarado - Last Filed: 02/12/25 21:39> General General appearance: alert and in no apparent distress Respiratory Respiratory exam: Present normal lung sounds bilaterally Cardiovascular Cardiovascular exam: Present regular rate Neurological Exam Neurological exam: Present alert and oriented X3 Medical Decision Making <GERONIMO Alvarado - Last Filed: 02/12/25 21:39> Medical Records Medical records reviewed: Yes I reviewed the patient's medical records. Screening: Per USPSTF and CDC recommendations, given the prevalence of disease in our region, it is our hospital?s policy to screen for HIV and viral Hepatitis for all patients aged 18 and over and those with ongoing risk factors. Vital Signs: 02/12/25 19:27 02/12/25 19:30 02/12/25 19:38 Temperature 97.9 F Temperature Source Oral Pulse Rate 73 72 Pulse Rate [Right Radial] 75 Respiratory Rate 16 20 Blood Pressure 131/95 H Blood Pressure [Right Arm] 131/95 H Blood Pressure Mean [Right Arm] 107 Blood Pressure Source [Right Arm] Automatic Cuff Blood Pressure Position Sitting Blood Pressure Position [Right Arm] Supine 02 Sat by Pulse Oximetry 100 98 Oxygen Delivery Method Room Air Room Air 02/12/25 20:00 02/12/25 20:30 02/12/25 21:32 Temperature Temperature Source Pulse Rate 70 68 69 Pulse Rate [Right Radial] Respiratory Rate 11 L 18 14 Blood Pressure 121/80 142/89 H 127/79 Blood Pressure [Right Arm] Blood Pressure Mean [Right Arm] Blood Pressure Source [Right Arm] Blood Pressure Position Blood Pressure Position [Right Arm] 02 Sat by Pulse Oximetry 95 97 99 Oxygen Delivery Method Lab Data Lab results reviewed: Yes I reviewed the patient's lab results. Lab Results 02/12/25 19:23: WBC 7.6, RBC 5.81, Hgb 15.6, Hct 48.1, MCV 82.8, MCH 26.9 L, MCHC 32.4, RDW 12.4, Plt Count 389, MPV 9.4, Neut % (Auto) 59.3, Lymph % (Auto) 32.5, [place] % (Auto) 6.7, Eos % (Auto) 0.9, Baso % (Auto) 0.3, Neut # (Auto) 4.5, Lymph # (Auto) 2.5, [place] # (Auto) 0.5, Eos # (Auto) 0.1, Baso # (Auto) 0.0, Sodium 140, Potassium 4.1, Chloride 103, Carbon Dioxide 29, Anion Gap 12.1, BUN 18, Creatinine 1.00, Estimated Creat Clear 189, Estimated GFR 90, Est GFR ( Amer) 108, Glucose 84, Calcium 9.8, Total Bilirubin 0.5, AST 34, ALT 34, Alkaline Phosphatase 61, Troponin I < 0.01, C-Reactive Protein 9.1 H, Total Protein 8.3 H, Albumin 4.8, Globulin 3.5 H, Albumin/Globulin Ratio 1.4 02/12/25 19:23 02/12/25 19:23 Orders (Tests/Meds): ED MEDICATIONS Generic Name Dose Route Start Last Admin Trade Name Freq PRN Reason Stop Dose Admin Acetaminophen 650 mg 02/12/25 21:37 Acetaminophen 325mg Tab PO 03/14/25 21:36 Q4HP PRN Fever or Mild Pain (1-3) Ibuprofen 400 mg 02/12/25 21:37 Ibuprofen 400 Mg Tablet PO 03/14/25 21:36 Q6HP PRN Mild Pain (1-3) Morphine Sulfate 4 mg 02/12/25 21:37 Morphine 4mg/Ml Syringe IV 03/14/25 21:36 Q4HP PRN Chest Pain Ondansetron HCl 4 mg 02/12/25 21:37 Ondansetron 4mg/2ml Vial IV 03/14/25 21:36 Q8HP PRN Nausea Pantoprazole Sodium 40 mg 02/13/25 21:00 Pantoprazole 40mg Tablet PO 03/15/25 20:59 HS DESIREE Promethazine HCl 25 mg 02/12/25 21:37 Promethazine Hcl 25mg/Ml 1ml Vial IV 03/14/25 21:36 Q6HP PRN Nausea And Vomiting Sodium Chloride 25 ml 02/12/25 21:37 Sodium Chloride 0.9% 25ml Bag IV 03/14/25 21:36 NEEDED PRN for Use with IV Promethazine Discontinued Medications Generic Name Dose Route Start Last Admin Trade Name Freq PRN Reason Stop Dose Admin Aspirin 324 mg 02/12/25 20:13 02/12/25 20:17 Aspirin 81mg Chewable Tablet PO 02/12/25 20:14 324 mg ONCE ONE Administration ORDERS Category Date Time Status CBC w/Auto Diff [Complete Blood Count Auto Diff] Stat Lab 02/12/25 19:23 Completed CMP [Comprehensive Metabolic Panel] Stat Lab 02/12/25 19:23 Completed Trop I [Troponin I] Stat Lab 02/12/25 19:23 Completed Troponin I Q3H Lab 02/12/25 23:15 Ordered Troponin I Q3H Lab 02/13/25 02:15 Ordered HEART Score History (anamnesis): Slightly suspicious ECG: Non-specific disturbance Age: <45 years Risk factors: 1-2 risk factors Troponin: </= normal limit HEART Score: 2 Medical Decision Narrative: In summary patient is a 29-year-old male who presents to the emergency department for evaluation of chest pain. Patient is hemodynamically stable upon arrival, febrile. Physical exam reveals no reproducible chest pain on palpation normal breath sounds normal heart sounds. Differential diagnosis includes ACS versus PE versus pericarditis versus gastroenteritis etc. Initial workup will be conducted with hematologic labs. Initial interventions include Tylenol Toradol for now. Initial workup reviewed by me shows his hematologic labs are nonactionable and troponin is undetectable. Given this I had indirect discussion with hospital medicine regarding patient presentation COY management and he will be admitted for further evaluation and care by cardiology. <Conrado Munoz MD - Last Filed: 02/12/25 21:55> [facility] Pt receiving controlled substance: No Vital Signs: 02/12/25 19:27 02/12/25 19:30 02/12/25 19:38 Temperature 97.9 F Temperature Source Oral Pulse Rate 73 72 Pulse Rate [Right Radial] 75 Respiratory Rate 16 20 Blood Pressure 131/95 H Blood Pressure [Right Arm] 131/95 H Blood Pressure Mean [Right Arm] 107 Blood Pressure Source [Right Arm] Automatic Cuff Blood Pressure Position Sitting Blood Pressure Position [Right Arm] Supine 02 Sat by Pulse Oximetry 100 98 Oxygen Delivery Method Room Air Room Air 02/12/25 20:00 02/12/25 20:30 02/12/25 21:32 Temperature Temperature Source Pulse Rate 70 68 69 Pulse Rate [Right Radial] Respiratory Rate 11 L 18 14 Blood Pressure 121/80 142/89 H 127/79 Blood Pressure [Right Arm] Blood Pressure Mean [Right Arm] Blood Pressure Source [Right Arm] Blood Pressure Position Blood Pressure Position [Right Arm] 02 Sat by Pulse Oximetry 95 97 99 Oxygen Delivery Method Lab Data Lab Results 02/12/25 19:23: WBC 7.6, RBC 5.81, Hgb 15.6, Hct 48.1, MCV 82.8, MCH 26.9 L, MCHC 32.4, RDW 12.4, Plt Count 389, MPV 9.4, Neut % (Auto) 59.3, Lymph % (Auto) 32.5, [place] % (Auto) 6.7, Eos % (Auto) 0.9, Baso % (Auto) 0.3, Neut # (Auto) 4.5, Lymph # (Auto) 2.5, [place] # (Auto) 0.5, Eos # (Auto) 0.1, Baso # (Auto) 0.0, Sodium 140, Potassium 4.1, Chloride 103, Carbon Dioxide 29, Anion Gap 12.1, BUN 18, Creatinine 1.00, Estimated Creat Clear 189, Estimated GFR 90, Est GFR ( Amer) 108, Glucose 84, Calcium 9.8, Total Bilirubin 0.5, AST 34, ALT 34, Alkaline Phosphatase 61, Troponin I < 0.01, C-Reactive Protein 9.1 H, Total Protein 8.3 H, Albumin 4.8, Globulin 3.5 H, Albumin/Globulin Ratio 1.4 Orders (Tests/Meds): ED MEDICATIONS Generic Name Dose Route Start Last Admin Trade Name Freq PRN Reason Stop Dose Admin Acetaminophen 650 mg 02/12/25 21:37 Acetaminophen 325mg Tab PO 03/14/25 21:36 Q4HP PRN Fever or Mild Pain (1-3) Ibuprofen 400 mg 02/12/25 21:37 Ibuprofen 400 Mg Tablet PO 03/14/25 21:36 Q6HP PRN Mild Pain (1-3) Morphine Sulfate 4 mg 02/12/25 21:37 Morphine 4mg/Ml Syringe IV 03/14/25 21:36 Q4HP PRN Chest Pain Ondansetron HCl 4 mg 02/12/25 21:37 Ondansetron 4mg/2ml Vial IV 03/14/25 21:36 Q8HP PRN Nausea Pantoprazole Sodium 40 mg 02/13/25 21:00 Pantoprazole 40mg Tablet PO 03/15/25 20:59 HS DESIREE Promethazine HCl 25 mg 02/12/25 21:37 Promethazine Hcl 25mg/Ml 1ml Vial IV 03/14/25 21:36 Q6HP PRN Nausea And Vomiting Sodium Chloride 25 ml 02/12/25 21:37 Sodium Chloride 0.9% 25ml Bag IV 03/14/25 21:36 NEEDED PRN for Use with IV Promethazine Discontinued Medications Generic Name Dose Route Start Last Admin Trade Name Freq PRN Reason Stop Dose Admin Aspirin 324 mg 02/12/25 20:13 02/12/25 20:17 Aspirin 81mg Chewable Tablet PO 02/12/25 20:14 324 mg ONCE ONE Administration ORDERS Category Date Time Status CBC w/Auto Diff [Complete Blood Count Auto Diff] Stat Lab 02/12/25 19:23 Completed CMP [Comprehensive Metabolic Panel] Stat Lab 02/12/25 19:23 Completed Trop I [Troponin I] Stat Lab 02/12/25 19:23 Completed Troponin I Q3H Lab 02/12/25 23:15 Ordered Troponin I Q3H Lab 02/13/25 02:15 Ordered ECG Data Tracing #1: Independently interpreted by me rate is 73, rhythm is regular, axis is normal, no ST elevation in anatomical contiguous leads, QTc 376. HEART Score HEART Score: 2 Medical Decision Narrative: In summary patient is a 29-year-old male who presents to the emergency department for evaluation of chest pain. Patient is hemodynamically stable upon arrival, febrile. Physical exam reveals no reproducible chest pain on palpation normal breath sounds normal heart sounds. Differential diagnosis includes ACS versus PE versus pericarditis versus gastroenteritis etc. Initial workup will be conducted with hematologic labs. Initial interventions include Tylenol Toradol for now. Initial workup reviewed by me shows his hematologic labs are nonactionable and troponin is undetectable. Given this I had indirect discussion with hospital medicine regarding patient presentation COY management and he will be admitted for further evaluation and care by cardiology. I was consulted by the ALEXIS, and we discussed the complexity of the problems being addressed. I approved the treatment and management plan for this patient's care in the emergency department, thus performing a substantive portion of the medical decision making. I discussed the case with overnight hospitalist, patient had recent admission for chest pain which workup was largely unremarkable. He still has concerning signs and symptoms of exertional dyspnea and ongoing chest pain and after hospitalist discussion anomalous insertion of the coronary artery remains on the differential and patient was admitted for continued investigation. Conrado Munoz MD Critical Care <GERONIMO Alvarado - Last Filed: 02/12/25 21:39> Critical Care Time Critical Care Time: No
[2025-02-12] MEDS: ASPIRIN 81MG CHEWABLE TABLET 324 MG PO (20:17)
[2025-02-12 20:23] LABS: Basophils % 0.3 % (0.1-2.0); Eosinophils # 0.1 Kmm3 (0.0-0.4); Eosinophils % 0.9 % (0.1-12.0); Hematocrit 48.1 % (42.0-52.0); Hemoglobin 15.6 g/dL (14.1-18.0); Immature Granulocytes # 0.02 10^3uL; Immature Granulocytes % 0.3 %; Lymphocytes # 2.5 K/mm3 (0.7-4.5); Lymphocytes % 32.5 % (10-50); Mean Corpuscular HGB Conc 32.4 g/dL (31.8-35.4); Mean Corpuscular Hemoglobin 26.9 pg (27.0-31.2); Mean Corpuscular Volume 82.8 fl (80-94); Mean Platelet Volume 9.4 fl (7.4-10.4); Monocytes # 0.5 K/mm3 (0.1-1.0); Monocytes % 6.7 % (1.7-9.3); Neutrophils # 4.5 K/mm3 (1.8-7.8); Neutrophils % 59.3 % (37.0-80.0); Nucleated Red Blood Cells # 0 10^3/uL; Nucleated Red Blood Cells % 0 %; Platelet Count 389 K/mm3 (142-424); Red Blood Count 5.81 M/mm3 (4.60-6.20); Red Cell Distribution Width 12.4 % (11.5-17.5); Red Cell Distribution Width-SD 37.6 fL; White Blood Count 7.6 K/mm3 (4.8-10.8)
[2025-02-12 20:26] LABS: Alanine Aminotransferase 34 U/L (12-78); Albumin Level 4.8 g/dl (3.5-5.0); Albumin/Globulin Ratio 1.4 (1.1-1.8); Alkaline Phosphatase 61 U/L (38-126); Anion Gap 12.1 mEq/L (5-15); Aspartate Amino Transferase 34 U/L (17-59); Bilirubin,Total 0.5 mg/dl (0.2-1.3); Blood Urea Nitrogen 18 mg/dl (9-20); Calcium 9.8 mg/dl (8.4-10.2); Carbon Dioxide 29 mmol/L (22.0-30.0); Chloride 103 mmol/L (98-107); Creatinine Clearance Estimated 189 mL/min (50-200); Estimated Glomerular Filt Rate 90 ml/min (>60); GFR (African American) 108 ML/MIN (>60); Globulin 3.5 g/dL (1.3-3.2); Glucose 84 mg/dl (74-100); Potassium 4.1 mmoL/L (3.5-5.1); Sodium 140 mmol/L (136-145); Total Protein,Serum 8.3 g/dl (6.3-8.2)
[2025-02-12 20:40] LABS: Troponin I < 0.01 ng/ml (0.00-0.034)
--- NOTE | 2025-02-12 21:41 | EXP.HP ---
History of Present Illness *Admission Date: 02/12/25 *Reason for visit:: Chest pain *History of present illness: Patient presents for evaluation of chest pain. Patient has had ongoing chest pain since Sunday. He ultimately was seen in the emergency department admitted and ultimately discharged on Sunday with follow-up with cardiology clinic on Sunday. Patient reports that he is continuing to have chest pain has decreased exercise tolerance When discussing with the patient he tells me that he has typical angina radiating to his back that occurs at rest and last about 20 to 30 minutes. Happened while he was on the [place] hog. Associated symptoms are dyspnea and palpitations. he has had multiple episodes of this since over the last few days. Describes it as progressive. He he says today he checked his vitals during one of the episodes and his heart rate was 170 and he was normotensive. no cardiac risk factors In the emergency department EKG is normal sinus without any ST deviation or MA depression. Review of CTA chest done earlier this week demonstrates left main artery origin, however the right coronary artery is not well-visualized. There appears to be an overlapping coronary originating from the left side, this may be motion artifact from the left main as it was a nongated study. Echo done by myself in the emergency department demonstrates grossly normal LV function and no significant valvular heart disease. No pericardial effusion. Discussed admission for further evaluation and patient was agreeable Diagnostics independently interpreted. Discussed case with ER physician. Independently interpreted diagnostics. Reviewed prior testing. [facility] Disclaimer: The information contained in this section may have been updated after the patient was seen, as this information can be updated by other users. Medical History (Updated 02/12/25 @ 21:02 by GERONIMO Alvarado) Other chest pain Elevated d-dimer COVID-19 Family History Mother Heart attack Grandfather Heart attack Social History Smoking Status: Never smoker alcohol intake: never current occupational status: employed Travel in the last 8 weeks?: None Have you lived/traveled outside US in past 30 days?: No Contact w/someone who lives/traveled outside US past 30 days?: No Exposure to someone with infectious disease in past 14 days?: No Do you have a fever (greater than 100.4 F or 38 C)?: No Have you tested positive for COVID-19?: No Exposed to someone with COVID-19 in past 14 days?: No Do you have a sore throat?: No Do you have a cough?: No Do you have any weakness?: No Do you have any diarrhea?: No Are you experiencing any unusual bleeding?: No Do you have any muscle aches/pain?: No Do you have any abdominal pain?: No Are you experiencing loss of taste or smell?: No Other Medical History Have you received the Flu Vaccine for this season: No Have you received the Pneumonia Vaccine: No Review of Systems Review of Systems Review of systems:: pertinent systems reviewed and negative unless documented below Meds Home Medications and Allergies Home Medications ?Medication ?Instructions ?Recorded ?Confirmed ?Type carvedilol 6.25 mg tablet (Coreg) 6.25 mg PO BID #60 tabs 02/08/25 02/09/25 Rx loratadine 10 mg tablet (Claritin) 10 mg PO DAILY PRN Allergies 02/08/25 02/09/25 History New Prescriptions to Start Prescriptions: Allergies Allergy/AdvReac Type Severity Reaction Status Date / Time codeine Allergy Verified 02/09/25 13:28 Exam Data for Last 24 hours Vital signs and Labs for Last 24 Hours: Temp Pulse Resp BP Pulse Ox O2 Del Method 97.9 F 68 18 142/89 H 97 Room Air 02/12/25 19:27 02/12/25 20:30 02/12/25 20:30 02/12/25 20:30 02/12/25 20:30 02/12/25 19:30 Laboratory Results - last 24 hr 02/12/25 19:23: WBC 7.6, RBC 5.81, Hgb 15.6, Hct 48.1, MCV 82.8, MCH 26.9 L, MCHC 32.4, RDW 12.4, Plt Count 389, MPV 9.4, Neut % (Auto) 59.3, Lymph % (Auto) 32.5, [place] % (Auto) 6.7, Eos % (Auto) 0.9, Baso % (Auto) 0.3, Neut # (Auto) 4.5, Lymph # (Auto) 2.5, [place] # (Auto) 0.5, Eos # (Auto) 0.1, Baso # (Auto) 0.0, Sodium 140, Potassium 4.1, Chloride 103, Carbon Dioxide 29, Anion Gap 12.1, BUN 18, Creatinine 1.00, Estimated Creat Clear 189, Estimated GFR 90, Est GFR ( Amer) 108, Glucose 84, Calcium 9.8, Total Bilirubin 0.5, AST 34, ALT 34, Alkaline Phosphatase 61, Troponin I < 0.01, Total Protein 8.3 H, Albumin 4.8, Globulin 3.5 H, Albumin/Globulin Ratio 1.4 I & O for Last 24 hours: Intake & Output 02/09/25 02/10/25 02/11/25 02/12/25 23:59 23:59 23:59 23:59 Weight 120.202 kg Microbiology Reports for the Last 24 Hours: Negative for respiratory panel Constitutional Constitutional: no acute distress Comments: Chest pain not near as bad as before, noted feeling warm temperature was 100.3 when checked in the ER *Routine HEENT Exam Head: Present normocephalic Eye: Present EOMI and PERRL ENT: Present mucous membranes moist *Routine Neck Exam Neck: Present supple; Absent lymphadenopathy Comments: No new neck rigidity found Routine Chest/Breast/Axilla Exam Comments: No tenderness to palpation of chest wall *Routine Respiratory Exam Respiratory: Present CTA bilaterally Comments: Lungs were clear there was a slight dry cough from time to time *Routine Cardiovascular Exam Cardiovascular: Present RRR *Routine Abdominal Exam Abdominal: Present soft and normoactive bowel sounds; Absent tenderness Comments: No tenderness found upon palpation of the abdomen *Routine Rectal Exam Rectal:: deferred *Routine Genitalia Exam Genitalia:: deferred *Routine Extremities Exam Extremities: Absent cyanosis, clubbing or edema Comments: No tenderness or edema to any of the extremities Routine Back/Spine/Pelvis Exam Back/Spine: Present full ROM Comments: No tenderness found upon exam patient is able to stand and walk without difficulty *Routine Skin Exam Skin: Present warm; Absent rash Comments: No rashes or any signs of ecchymosis *Routine Neurological Exam Neurological: Present alert and oriented X3 Comments: No neurological deficits found Routine Psychiatric Exam Psychiatric: Present normal affect, normal thought process, cooperative, good insight and good judgment Assessment and Plan *Assessment and plan (1) Tachycardia: Status: Acute Category: Medical Code(s): R00.0 - Tachycardia, unspecified (2) Obesity (BMI 30-39.9): Status: Acute Category: Medical Code(s): E66.9 - Obesity, unspecified (3) HTN (hypertension): Status: Acute Category: Medical Code(s): I10 - Essential (primary) hypertension (4) Chest pain: Status: Acute Qualifiers: Chest pain type: other chest pain Qualified Code(s): R07.89 - Other chest pain Category: Medical Code(s): R07.9 - Chest pain, unspecified Plan 29-year-old male no known cardiac risk factors presenting with acute progressive typical angina 1 week duration. non gated Chest CTA done this week demonstrates potential anomalous coronary, however this may be motion artifact. Given his progressive symptoms it warrants further evaluation. Inflammatory markers are pending for pericarditis. Of note he is also having episodes of significant tachycardia, arrhythmia has not been excluded, will do tele monitoring and he will needs 14-day monitor on discharge. POCUS grossly normal, formal echo in AM Acute chest pain Tachycardia - CCTA, largely for eval of anomalous coronary but akhil eval for premature cad - Lopressor 25 in a.m., Lopressor 5 mg IV every 5 minute as needed for heart rates faster than 70 prior to scan - Echo - Telemetry - 14-day monitor on discharge - ESR, CRP - Lipid panel - Outpatient LP(a)
--- NOTE | 2025-02-12 21:45 | PC.NURSE ---
Report called to [place] for admission to room 209
[2025-02-12 21:53] LABS: C-Reactive Protein 9.1 mg/L (0-4)
[2025-02-12 22:31] LABS: Erythrocyte Sedimentation Rate 15 mm/hr (0-15)
[2025-02-13] VITALS: BP 100/53; PULSE 64; PULSE 65; RESP 14; TEMP 36.6; O2SAT 95
[2025-02-13 00:16] LABS: Troponin I < 0.01 ng/ml (0.00-0.034)
[2025-02-13 02:48] LABS: Troponin I < 0.01 ng/ml (0.00-0.034)
--- NOTE | 2025-02-13 03:48 | PC.NURSE ---
Pt AOx4, pleasant. Pt is a new admit this shift, came in c/o chest pain that he states has improved some. Pt is resting in bed with eyes closed, respirations even and unlabored. Bed low, locked, and call light is within reach. at bedside.
[2025-02-13 04:00] VITALS: BP 107/56; PULSE 63; RESP 20; TEMP 36.7; O2SAT 99; BMI 16.8
[2025-02-13 04:25] VITALS: PULSE 80
[2025-02-13] MEDS: METOPROLOL TARTRATE 25MG TABLET 25 MG PO (05:52)
--- NOTE | 2025-02-13 06:00 | CA_ITS ---
APPROVED REPORT EXAM: Comprehensive 2D, Doppler, and color-flow Echocardiogram Greaser Helper: Alondra Metzger RDCS Ht: 5 ft 10 in Wt: 260lbs BSA: 2.33 BP: 142/89 mmHg Indications: Chest pain, Tachycardia, HTN M-Mode Dimensions RVDd 2.44 cm (0.9-2.6) LA Diam 3.70 cm (1.9-4.0) LVDd 6.35 cm (3.5-5.7) LVDs 4.48 cm (3.5-5.7) IVSd 0.50 cm (0.6-1.1) PWd 0.75 cm (0.6-1.1) EF (Teich) 55.30% FS 29.40% EDV (Teich) 204.80 mL TAPSE 2.78 (<1.7) ESV (Teich) 91.50 mL LV Diastology E Decel Time 137 (160-240 msec) E/A Ratio 2.07 Mitral Valve MV E Max William. 86.0 (40-130 cm/s) MV A Velocity 41.0 (40-130 cm/s) E/A Ratio 2.07 MV Mean Gr. 0.90 (<2mmHg) MV PHT 40.0 ms Left Ventricle The left ventricle is normal size. The left ventricular systolic function is normal. The left ventricular ejection fraction is within the normal range. There is normal left ventricular wall thickness. There is normal LV segmental wall motion. The left ventricular diastolic function is normal. LVEF is 55%. Right Ventricle The right ventricle is normal size. The right ventricular systolic function is normal. Atria The left atrium size is normal. The right atrium size is normal. There is no Doppler evidence of interatrial shunt. Aortic Valve The aortic valve opens well. There is no aortic valvular stenosis. No aortic regurgitation is present. Mitral Valve The mitral valve is normal in structure. No evidence of mitral valve stenosis. Trace mitral regurgitation. Tricuspid Valve Tricuspid valve is grossly normal in structure and function. Trace tricuspid regurgitation. There is insufficient TR jet to estimate RVSP. Pulmonic Valve The pulmonary valve is normal in structure. Trace pulmonic regurgitation. Great Vessels The aortic root is normal in size. IVC is normal in size and collapses >50% with inspiration. Pericardium There is no pericardial effusion. Other Information Study Quality: Adequate Conclusion Normal biventricular systolic function. No significant valvular stenosis or regurgitation. Electronically signed by : Maryse Montes MD 02/13/2025 11:23:35
[2025-02-13 06:26] LABS: Basophils % 0.3 % (0.1-2.0); Eosinophils # 0.1 Kmm3 (0.0-0.4); Eosinophils % 1.3 % (0.1-12.0); Hematocrit 44.7 % (42.0-52.0); Hemoglobin 14.9 g/dL (14.1-18.0); Immature Granulocytes # 0.03 10^3uL; Immature Granulocytes % 0.4 %; Lymphocytes # 2.5 K/mm3 (0.7-4.5); Lymphocytes % 35.1 % (10-50); Mean Corpuscular HGB Conc 33.3 g/dL (31.8-35.4); Mean Corpuscular Hemoglobin 27.9 pg (27.0-31.2); Mean Corpuscular Volume 83.7 fl (80-94); Mean Platelet Volume 9.3 fl (7.4-10.4); Monocytes # 0.6 K/mm3 (0.1-1.0); Monocytes % 8.7 % (1.7-9.3); Neutrophils # 3.8 K/mm3 (1.8-7.8); Neutrophils % 54.2 % (37.0-80.0); Nucleated Red Blood Cells # 0 10^3/uL; Nucleated Red Blood Cells % 0 %; Platelet Count 372 K/mm3 (142-424); Red Blood Count 5.34 M/mm3 (4.60-6.20); Red Cell Distribution Width 12.4 % (11.5-17.5); Red Cell Distribution Width-SD 37.6 fL
[2025-02-13 06:42] LABS: Albumin Level 4.1 g/dl (3.5-5.0); Chloride 105 mmol/L (98-107); Potassium 3.8 mmoL/L (3.5-5.1); Sodium 140 mmol/L (136-145)
[2025-02-13 06:45] LABS: Alanine Aminotransferase 28 U/L (12-78); Albumin/Globulin Ratio 1.5 (1.1-1.8); Alkaline Phosphatase 58 U/L (38-126); Anion Gap 8.8 mEq/L (5-15); Aspartate Amino Transferase 29 U/L (17-59); Bilirubin,Total 0.2 mg/dl (0.2-1.3); Blood Urea Nitrogen 18 mg/dl (9-20); Calcium 9.1 mg/dl (8.4-10.2); Carbon Dioxide 30 mmol/L (22.0-30.0); Creatinine Clearance Estimated 76 mL/min (50-200); Estimated Glomerular Filt Rate 80 ml/min (>60); GFR (African American) 97 ML/MIN (>60); Globulin 2.7 g/dL (1.3-3.2); Glucose 88 mg/dl (74-100); Magnesium 2.1 mg/dl (1.6-2.3); Total Protein,Serum 6.8 g/dl (6.3-8.2)
--- NOTE | 2025-02-13 07:00 | CT_ITS ---
APPROVED REPORT Loan Documents Closer: CLINICAL INDICATION Chest Pain TECHNIQUE Image Acquisition: A 128 slice MDCT scanner ([employer]) was used for data acquisition. A noncontrast coronary calcium scan was performed. A CT attenuation threshold of 130 Hounsfield units (HU) was used for the detection of calcium in contiguous voxels of 1 sq mm in area to be counted as individual lesions. Bolus tracking in the ascending aorta with a threshold of 180 HU was performed. Immediately afterwards, ECG synchronized cardiac CT was then performed from the cardiac base to apex using retrospective gating with ECG tube current modulation. A total of 85 mL of Isovue 370 mg/mL contrast medium was administered at 5 mL/sec followed by a saline flush using a biphasic injection protocol. A tube voltage of 120 KVp was used. The patient received the following medications prior to the cardiac CT. 100 mg of oral metoprolol 15 mg of oral ivabradine 0.8 mg of sublingual nitroglycerin The average heart rate at the time of acquisition was 48 bpm and regular. Image Reconstruction Transaxial images were reconstructed at 0.67 mm slide thickness. Data was reviewed interactively on an advanced workstation capable of 2 and 3-dimensional displays in all conventional reconstruction formats, including multiplanar reformations, maximum intensity projections, curved multiplanar reformations, and volume rendered reconstructions. When applicable, selected routine images describing the relevant coronary anatomy and pathology were saved and sent to PACS. Complications None Technical Quality Overall image quality was good. Coronary artery opacification was adequate. Total DLP (Dose-Length Product) is 2129.2 mGy-cm. The reported value represents the total of one or more individual components during the CT acquisition of this date and at this time, and as such, the same value may appear in more than one CT report depending on the interpreting/reporting physicians. COMPARISON None FINDINGS CT Coronary Calcium Scoring LMA (Left Main Artery) = 0 LAD (Left Anterior Descending) = 0 LCX (Left Coronary Circumflex) = 0 RCA (Right Coronary Artery) = 0 Total Calcium Score = 0 using the AJ-130 method. The interpretation of the calcium heart score is based on the following continuum*: 0 = no calcified plaque detected (risk of coronary artery disease is very low ??? less than 5%) 1-10 = calcium detected in extremely minimal levels (risk of coronary diseases is still low ??? less than 10%) 11-100 = mild levels of plaque detected with certainty (mild or minimal narrowing of heart arteries is likely) 101-400 = definite,at least moderate levels of plaque detected (relatively high risk of a heart attack within 3-5 years) >401-999 = extensive levels of plaque detected (high risk of heart attack, high levels of vascular disease are present, high likelihood of at least one significant coronary narrowing) *The calcium heart score quantifies the burden of coronary calcification/plaque in the coronary arteries. The calcium heart score is not able to evaluate the presence or burden of non-calcified (i.e. soft) plaque. There is no identifiable calcification in the aortic valve, mitral annulus or mitral valve, pericardium, or myocardium. Coronary CT Angiography The coronary arterial system is left dominant. Quantitative Stenosis Grading: Left Main (LM): The left main originates normally from the left sinus of Valsalva. The LM bifurcates into the left anterior descending artery and left circumflex artery. The LM is patent with no evidence of atherosclerosis. Left Anterior Descending (LAD) and Diagonal Branches: The LAD gives off 3 diagonal branch(es). The LAD and its branches are patent with no evidence of atherosclerosis. There is no evidence of LAD-myocardial bridge. Left Circumflex (LCX) and Obtuse Marginals (OM): The LCX gives off 2 Obtuse Marginal (OM) branch(es). The LCX and its branches are patent with no evidence of atherosclerosis. Right Coronary Artery (RCA): The RCA originates normally from the right sinus of Valsalva. The RCA and its branches are patent with no evidence of atherosclerosis. Non-Coronary Cardiac Findings: Analysis of the left ventricular (LV) structure and function was performed after 3-D reconstruction of the LV from axial images, with user-corrected automatic contouring for assessment of LV volumes and user-defined reconstruction from oblique planes for measurement of 3-D cardiac structure and function. -The left ventricle systolic function is normal. -There is no left atrial appendage filling defect. Two right pulmonary veins and two left pulmonary veins drain normally into the left atrium. -No pericardial thickening or calcification. -Central and branch pulmonary arteries in the [id number] are unremarkable. -Thoracic aorta within the visualized thoracic aortic-branches in the [id number] is unremarkable. Extracardiac Structures No significant extra-cardiac findings. Note, however, that this study is focused on the cardiac findings. IMPRESSION -Absence of coronary calcification with an Agatston score = 0 using the AJ-130 method. -No evidence of significant flow-limiting atherosclerosis of the coronary arteries. -No evidence of coronary anomalies or myocardial bridges. -CAD-RADS 0. Management recommendations per ACC/AHA guidelines*, as clinically appropriate. *Recommendations: CAD RADS 0: Reassurance. Consider non-atherosclerotic causes of chest pain. CAD RADS 1: Consider non-atherosclerotic causes of chest pain. Consider preventive therapy and risk factor modification. CAD RADS 2: Consider non-atherosclerotic causes of chest pain. Consider preventive therapy and risk factor modification, particularly for patients with nonobstructive plaque in multiple segments. CAD RADS 3: Consider further functional testing. Consider symptom-guided anti-ischemic and preventive pharmacotherapy as well as risk factor modification per published guideline statements. CAD RADS 4A: Consider further functional testing or invasive coronary angiography with revascularization per published guideline statements. Consider symptom-guided anti-ischemic and preventive pharmacotherapy as well as risk factor modification per published guideline statements. CAD RADS 4B: Invasive coronary angiography recommended with revascularization per published guideline statements. Consider symptom-guided anti-ischemic and preventive pharmacotherapy as well as risk factor modification per published guideline statements. CAD RADS 5: Consider invasive angiography and/or viability assessment with revascularization per published guideline statements. Consider symptom-guided anti-ischemic and preventive pharmacotherapy as well as risk factor modification per published guideline statements. CRITICAL RESULT None COMMUNICATION Per this written report The coronary and cardiac findings of this CCTA were reviewed, reported, and signed by Scotty Montes MD ([employer]) Conclusion Electronically signed by : Maryse Montes MD 02/13/2025 14:36:48
--- NOTE | 2025-02-13 07:04 | P.CONCA_ITS ---
History of Present Illness History of Present Illness Consult date: 02/13/25 Requesting physician: Fuad Sebastian Consult reason: chest pain Chief complaint: chest pain History of present illness: Hospitalist note: Patient presents for evaluation of chest pain. Patient has had ongoing chest pain since Sunday. He ultimately was seen in the emergency department admitted and ultimately discharged on Sunday with follow-up with cardiology clinic on Sunday. Patient reports that he is continuing to have chest pain has decreased exercise tolerance When discussing with the patient he tells me that he has typical angina radiating to his back that occurs at rest and last about 20 to 30 minutes. Happened while he was on the [employer]. Associated symptoms are dyspnea and palpitations. he has had multiple episodes of this since over the last few days. Describes it as progressive. He he says today he checked his vitals during one of the episodes and his heart rate was 170 and he was normotensive. no cardiac risk factors In the emergency department EKG is normal sinus without any ST deviation or TX depression. Review of CTA chest done earlier this week demonstrates left main artery origin, however the right coronary artery is not well-visualized. There appears to be an overlapping coronary originating from the left side, this may be motion artifact from the left main as it was a nongated study. Echo done by myself in the emergency department demonstrates grossly normal LV function and no significant valvular heart disease. No pericardial effusion. Discussed admission for further evaluation and patient was agreeable Cardiology note: This is a 29-year-old white male with past medical history of obesity and hypertension who presented to emergency department with complaints of chest pain. Patient endorses the above story. He complains of ongoing intermittent episodes of chest pain and decreased exercise intolerance. Serial troponins remain negative. EKG is without acute ischemic changes noted. Echo and CCTA are both pending. Patient is resting comfortably in bed this morning and denies any complaints [facility] Disclaimer: The information contained in this section may have been updated after the patient was seen, as this information can be updated by other users. Medical History (Updated 02/12/25 @ 21:02 by GERONIMO Alvarado) Other chest pain Elevated d-dimer COVID-19 Family History Mother Heart attack Grandfather Heart attack Social History Smoking Status: Never smoker alcohol intake: never current occupational status: employed Travel in the last 8 weeks?: None Have you lived/traveled outside US in past 30 days?: No Contact w/someone who lives/traveled outside US past 30 days?: No Exposure to someone with infectious disease in past 14 days?: No Do you have a fever (greater than 100.4 F or 38 C)?: No Have you tested positive for COVID-19?: No Exposed to someone with COVID-19 in past 14 days?: No Do you have a sore throat?: No Do you have a cough?: No Do you have any weakness?: No Do you have any diarrhea?: No Are you experiencing any unusual bleeding?: No Do you have any muscle aches/pain?: No Do you have any abdominal pain?: No Are you experiencing loss of taste or smell?: No Review of Systems Review of Systems Review of systems:: pertinent systems reviewed and negative unless documented below Constitutional Constitutional: Reports system reviewed and no additional complaints, except as documented *Cardiovascular Cardiovascular: Reports chest pain and Reports dyspnea *Respiratory Respiratory: Reports system reviewed and no additional complaints, except as documented and Reports dyspnea *Gastrointestinal Gastrointestinal: Reports system reviewed and no additional complaints, except as documented *Neurologic Neurologic: Reports system reviewed and no additional complaints, except as documented and Denies confusion Psychiatric Psychiatric: Reports system reviewed and no additional complaints, except as documented and Denies confusion Exam Data for Last 24 hours Vital signs and Labs for Last 24 Hours: Temp Pulse Resp BP Pulse Ox O2 Del Method 98.1 F 80 20 107/56 L 99 Room Air 02/13/25 04:00 02/13/25 04:25 02/13/25 04:00 02/13/25 04:00 02/13/25 04:00 02/13/25 06:34 Laboratory Results - last 24 hr 02/12/25 19:23: WBC 7.6, RBC 5.81, Hgb 15.6, Hct 48.1, MCV 82.8, MCH 26.9 L, MCHC 32.4, RDW 12.4, Plt Count 389, MPV 9.4, Neut % (Auto) 59.3, Lymph % (Auto) 32.5, [place] % (Auto) 6.7, Eos % (Auto) 0.9, Baso % (Auto) 0.3, Neut # (Auto) 4.5, Lymph # (Auto) 2.5, [place] # (Auto) 0.5, Eos # (Auto) 0.1, Baso # (Auto) 0.0, ESR 15, Sodium 140, Potassium 4.1, Chloride 103, Carbon Dioxide 29, Anion Gap 12.1, BUN 18, Creatinine 1.00, Estimated Creat Clear 189, Estimated GFR 90, Est GFR ( Amer) 108, Glucose 84, Calcium 9.8, Total Bilirubin 0.5, AST 34, ALT 34, Alkaline Phosphatase 61, Troponin I < 0.01, C-Reactive Protein 9.1 H, Total Protein 8.3 H, Albumin 4.8, Globulin 3.5 H, Albumin/Globulin Ratio 1.4 02/12/25 23:42: Troponin I < 0.01 02/13/25 01:59: Troponin I < 0.01 02/13/25 05:50: WBC 7.0, RBC 5.34, Hgb 14.9, Hct 44.7, MCV 83.7, MCH 27.9, MCHC 33.3, RDW 12.4, Plt Count 372, MPV 9.3, Neut % (Auto) 54.2, Lymph % (Auto) 35.1, [place] % (Auto) 8.7, Eos % (Auto) 1.3, Baso % (Auto) 0.3, Neut # (Auto) 3.8, Lymph # (Auto) 2.5, [place] # (Auto) 0.6, Eos # (Auto) 0.1, Baso # (Auto) 0.0, Sodium 140, Potassium 3.8, Chloride 105, Carbon Dioxide 30, Anion Gap 8.8, BUN 18, Creatinine 1.10, Estimated Creat Clear 76, Estimated GFR 80, Est GFR ( Amer) 97, Glucose 88, Calcium 9.1, Magnesium 2.1, Total Bilirubin 0.2, AST 29, ALT 28, Alkaline Phosphatase 58, Total Protein 6.8, Albumin 4.1 D, Globulin 2.7, Albumin/Globulin Ratio 1.5 I & O for Last 24 hours: Intake & Output 02/10/25 02/11/25 02/12/25 02/13/25 23:59 23:59 23:59 23:59 Output Total 0 / 0 Balance 0 / 0 Weight 260 lb 117 lb 12.8 oz Meds Home Medications and Allergies Home Medications ?Medication ?Instructions ?Recorded ?Confirmed ?Type carvedilol 6.25 mg tablet (Coreg) 6.25 mg PO BID #60 t abs 02/08/25 02/12/25 Rx loratadine 10 mg tablet (Claritin) 10 mg PO DAILY PRN Allergies 02/08/25 02/12/25 History New Prescriptions to Start Prescriptions: Allergies Allergy/AdvReac Type Severity Reaction Status Date / Time codeine Allergy Verified 02/09/25 13:28 Assessment and Plan *Assessment and plan (1) Tachycardia: Status: Acute Category: Medical Code(s): R00.0 - Tachycardia, unspecified (2) Dyspnea: Status: Acute Category: Medical Code(s): R06.00 - Dyspnea, unspecified (3) HTN (hypertension): Status: Acute Category: Medical Code(s): I10 - Essential (primary) hypertension (4) Chest pain: Status: Acute Qualifiers: Chest pain type: other chest pain Qualified Code(s): R07.89 - Other chest pain Category: Medical Code(s): R07.9 - Chest pain, unspecified Plan Acute chest pain Tachycardia - CCTA, largely for eval of anomalous coronary but akhil eval for premature cad - Echo is pending - CTA chest 02/09 was negative for PE - 14-day monitor on discharge - ESR, CRP - Lipid panel - Outpatient LP(a) CV summary 02/13/2025: CCTA and echocardiogram are pending. Please make sure the patient does get discharged home with a 14-day event monitor if patient goes home over the weekend.
[2025-02-13 07:43] VITALS: BP 144/58; PULSE 75; RESP 18; TEMP 36.4; O2SAT 99
[2025-02-13 08:00] VITALS: PULSE 70
[2025-02-13] MEDS: IVABRADINE HCL 7.5MG TABLET *IVABRADINE+METOPROLOL REGIMINE 15 MG PO (10:15)
[2025-02-13] MEDS: METOPROLOL TARTRATE 50MG TABLET *IVABRADINE+METOPROLOL REGIMINE 75 MG PO (10:15)
[2025-02-13] MEDS: METOPROLOL TARTRATE 25MG TABLET *IVABRADINE+METOPROLOL REGIMINE 25 MG PO (11:53)
[2025-02-13 12:00] VITALS: BP 106/45; PULSE 60; PULSE 70; RESP 18; TEMP 36.6; O2SAT 98
[2025-02-13] MEDS: NITROGLYCERIN 0.4MG SL TABLET 0.8 MG SL (12:52)
[2025-02-13] MEDS: 0.9 % SODIUM CHLORIDE 50 ML VIAL 100 ML IV (13:23)
[2025-02-13] MEDS: SODIUM CHLORIDE 0.9% 10ML SYR (RAD ONLY) 10 ML IV (13:24)
[2025-02-13] MEDS: IOPAMIDOL-370 (76%);100ML BOTTLE 170 ML IV (13:24)
--- NOTE | 2025-02-13 14:39 | EXP.DC.SUM ---
General Admission date:: 02/12/25 HPI HPI HPI: Patient presents for evaluation of chest pain. Patient has had ongoing chest pain since Sunday. He ultimately was seen in the emergency department admitted and ultimately discharged on Sunday with follow-up with cardiology clinic on Sunday. Patient reports that he is continuing to have chest pain has decreased exercise tolerance When discussing with the patient he tells me that he has typical angina radiating to his back that occurs at rest and last about 20 to 30 minutes. Happened while he was on the [employer]. Associated symptoms are dyspnea and palpitations. he has had multiple episodes of this since over the last few days. Describes it as progressive. He he says today he checked his vitals during one of the episodes and his heart rate was 170 and he was normotensive. no cardiac risk factors In the emergency department EKG is normal sinus without any ST deviation or DE depression. Review of CTA chest done earlier this week demonstrates left main artery origin, however the right coronary artery is not well-visualized. There appears to be an overlapping coronary originating from the left side, this may be motion artifact from the left main as it was a nongated study. Echo done by myself in the emergency department demonstrates grossly normal LV function and no significant valvular heart disease. No pericardial effusion. Discussed admission for further evaluation and patient was agreeable Diagnostics independently interpreted. Discussed case with ER physician. Independently interpreted diagnostics. Reviewed prior testing. Hospital Course Hospital Course Hospital Course: Abdiaziz Hodge 29-year-old male no known cardiac risk factors presenting with acute progressive typical angina 1 week duration. Chest CTA done this week demonstrates potential anomalous coronary, however this may be motion artifact. Given his progressive symptoms it warrants further evaluation and was admitted for the evaluation of the same. Of note he is also having episodes of significant tachycardia, arrhythmia has not been excluded, will do tele monitoring and he will needs 14-day monitor on discharge. Acute chest pain Tachycardia ? Cardiology consulted, CCTA and ECHO unremarkable. Patient is chest pain-free. ? Troponins, EKG unremarkable. ? Started Protonix 40 mg, ranolazine 500 mg twice daily. ? Continue 14-day event monitor. ? Will follow-up with cardiology within 2 weeks. Total time spent on discharge: 32 minutes on chart review, counseling, documentation, and direct care with patient. Exam Data for Last 24 hours Vital signs and Labs for Last 24 Hours: Temp Pulse Resp BP Pulse Ox O2 Del Method 97.8 F 60 18 106/45 L 98 Room Air 02/13/25 12:00 02/13/25 12:00 02/13/25 12:00 02/13/25 12:00 02/13/25 12:00 02/13/25 12:23 Laboratory Results - last 24 hr 02/12/25 19:23: WBC 7.6, RBC 5.81, Hgb 15.6, Hct 48.1, MCV 82.8, MCH 26.9 L, MCHC 32.4, RDW 12.4, Plt Count 389, MPV 9.4, Neut % (Auto) 59.3, Lymph % (Auto) 32.5, [place] % (Auto) 6.7, Eos % (Auto) 0.9, Baso % (Auto) 0.3, Neut # (Auto) 4.5, Lymph # (Auto) 2.5, [place] # (Auto) 0.5, Eos # (Auto) 0.1, Baso # (Auto) 0.0, ESR 15, Sodium 140, Potassium 4.1, Chloride 103, Carbon Dioxide 29, Anion Gap 12.1, BUN 18, Creatinine 1.00, Estimated Creat Clear 189, Estimated GFR 90, Est GFR ( Amer) 108, Glucose 84, Calcium 9.8, Total Bilirubin 0.5, AST 34, ALT 34, Alkaline Phosphatase 61, Troponin I < 0.01, C-Reactive Protein 9.1 H, Total Protein 8.3 H, Albumin 4.8, Globulin 3.5 H, Albumin/Globulin Ratio 1.4 02/12/25 23:42: Troponin I < 0.01 02/13/25 01:59: Troponin I < 0.01 02/13/25 05:50: WBC 7.0, RBC 5.34, Hgb 14.9, Hct 44.7, MCV 83.7, MCH 27.9, MCHC 33.3, RDW 12.4, Plt Count 372, MPV 9.3, Neut % (Auto) 54.2, Lymph % (Auto) 35.1, [place] % (Auto) 8.7, Eos % (Auto) 1.3, Baso % (Auto) 0.3, Neut # (Auto) 3.8, Lymph # (Auto) 2.5, [place] # (Auto) 0.6, Eos # (Auto) 0.1, Baso # (Auto) 0.0, Sodium 140, Potassium 3.8, Chloride 105, Carbon Dioxide 30, Anion Gap 8.8, BUN 18, Creatinine 1.10, Estimated Creat Clear 76, Estimated GFR 80, Est GFR ( Amer) 97, Glucose 88, Calcium 9.1, Magnesium 2.1, Total Bilirubin 0.2, AST 29, ALT 28, Alkaline Phosphatase 58, Total Protein 6.8, Albumin 4.1 D, Globulin 2.7, Albumin/Globulin Ratio 1.5 Temp Pulse Resp BP Pulse Ox O2 Del Method 98.1 F 80 20 107/56 L 99 Room Air 02/13/25 04:00 02/13/25 04:25 02/13/25 04:00 02/13/25 04:00 02/13/25 04:00 02/13/25 06:34 Laboratory Results - last 24 hr 02/12/25 19:23: WBC 7.6, RBC 5.81, Hgb 15.6, Hct 48.1, MCV 82.8, MCH 26.9 L, MCHC 32.4, RDW 12.4, Plt Count 389, MPV 9.4, Neut % (Auto) 59.3, Lymph % (Auto) 32.5, [place] % (Auto) 6.7, Eos % (Auto) 0.9, Baso % (Auto) 0.3, Neut # (Auto) 4.5, Lymph # (Auto) 2.5, [place] # (Auto) 0.5, Eos # (Auto) 0.1, Baso # (Auto) 0.0, ESR 15, Sodium 140, Potassium 4.1, Chloride 103, Carbon Dioxide 29, Anion Gap 12.1, BUN 18, Creatinine 1.00, Estimated Creat Clear 189, Estimated GFR 90, Est GFR ( Amer) 108, Glucose 84, Calcium 9.8, Total Bilirubin 0.5, AST 34, ALT 34, Alkaline Phosphatase 61, Troponin I < 0.01, C-Reactive Protein 9.1 H, Total Protein 8.3 H, Albumin 4.8, Globulin 3.5 H, Albumin/Globulin Ratio 1.4 02/12/25 23:42: Troponin I < 0.01 02/13/25 01:59: Troponin I < 0.01 02/13/25 05:50: WBC 7.0, RBC 5.34, Hgb 14.9, Hct 44.7, MCV 83.7, MCH 27.9, MCHC 33.3, RDW 12.4, Plt Count 372, MPV 9.3, Neut % (Auto) 54.2, Lymph % (Auto) 35.1, [place] % (Auto) 8.7, Eos % (Auto) 1.3, Baso % (Auto) 0.3, Neut # (Auto) 3.8, Lymph # (Auto) 2.5, [place] # (Auto) 0.6, Eos # (Auto) 0.1, Baso # (Auto) 0.0, Sodium 140, Potassium 3.8, Chloride 105, Carbon Dioxide 30, Anion Gap 8.8, BUN 18, Creatinine 1.10, Estimated Creat Clear 76, Estimated GFR 80, Est GFR ( Amer) 97, Glucose 88, Calcium 9.1, Magnesium 2.1, Total Bilirubin 0.2, AST 29, ALT 28, Alkaline Phosphatase 58, Total Protein 6.8, Albumin 4.1 D, Globulin 2.7, Albumin/Globulin Ratio 1.5 I & O for Last 24 hours: Intake & Output 02/10/25 02/11/25 02/12/25 02/13/25 23:59 23:59 23:59 23:59 Intake Total 200 / 200 Output Total 475 / 475 Balance -275 / -275 Weight 117.934 kg 53.433 kg Intake & Output 02/10/25 02/11/25 02/12/25 02/13/25 23:59 23:59 23:59 23:59 Output Total 0 / 0 Balance 0 / 0 Weight 260 lb 117 lb 12.8 oz Results Data Completed and Pending Labs on day of discharge: Labs from last 24 hours 02/13/25 02/13/25 02/12/25 05:50 01:59 23:42 WBC 7.0 RBC 5.34 Hgb 14.9 Hct 44.7 MCV 83.7 MCH 27.9 MCHC 33.3 RDW 12.4 Plt Count 372 MPV 9.3 Neut % (Auto) 54.2 Lymph % (Auto) 35.1 [place] % (Auto) 8.7 Eos % (Auto) 1.3 Baso % (Auto) 0.3 Neut # (Auto) 3.8 Lymph # (Auto) 2.5 [place] # (Auto) 0.6 Eos # (Auto) 0.1 Baso # (Auto) 0.0 ESR Sodium 140 Potassium 3.8 Chloride 105 Carbon Dioxide 30 Anion Gap 8.8 BUN 18 Creatinine 1.10 Estimated Creat Clear 76 Estimated GFR 80 Est GFR ( Amer) 97 Glucose 88 Calcium 9.1 Magnesium 2.1 Total Bilirubin 0.2 AST 29 ALT 28 Alkaline Phosphatase 58 Troponin I < 0.01 < 0.01 C-Reactive Protein Total Protein 6.8 Albumin 4.1 D Globulin 2.7 Albumin/Globulin Ratio 1.5 02/12/25 19:23 WBC 7.6 RBC 5.81 Hgb 15.6 Hct 48.1 MCV 82.8 MCH 26.9 L MCHC 32.4 RDW 12.4 Plt Count 389 MPV 9.4 Neut % (Auto) 59.3 Lymph % (Auto) 32.5 [place] % (Auto) 6.7 Eos % (Auto) 0.9 Baso % (Auto) 0.3 Neut # (Auto) 4.5 Lymph # (Auto) 2.5 [place] # (Auto) 0.5 Eos # (Auto) 0.1 Baso # (Auto) 0.0 ESR 15 Sodium 140 Potassium 4.1 Chloride 103 Carbon Dioxide 29 Anion Gap 12.1 BUN 18 Creatinine 1.00 Estimated Creat Clear 189 Estimated GFR 90 Est GFR ( Amer) 108 Glucose 84 Calcium 9.8 Magnesium Total Bilirubin 0.5 AST 34 ALT 34 Alkaline Phosphatase 61 Troponin I < 0.01 C-Reactive Protein 9.1 H Total Protein 8.3 H Albumin 4.8 Globulin 3.5 H Albumin/Globulin Ratio 1.4 DS: Diagnosis Discharge Diagnosis (1) Tachycardia: Status: Acute Code(s): R00.0 - Tachycardia, unspecified (2) Dyspnea: Status: Acute Code(s): R06.00 - Dyspnea, unspecified (3) HTN (hypertension): Status: Acute Code(s): I10 - Essential (primary) hypertension (4) Chest pain: Status: Acute Code(s): R07.9 - Chest pain, unspecified Qualifiers: Chest pain type: other chest pain Qualified Code(s): R07.89 - Other chest pain Meds Home Medications and Allergies Home Medications ?Medication ?Instructions ?Recorded ?Confirmed ?Type loratadine 10 mg tablet (Claritin) 10 mg PO DAILY PRN Allergies 02/08/25 02/23/25 History New Prescriptions to Start Prescriptions: Allergies Allergy/AdvReac Type Severity Reaction Status Date / Time codeine Allergy Verified 02/23/25 11:58 Discharge Plan Disposition Patient Disposition: Home, Self-Care Condition: Fair Follow up Plan Follow up with: Rod Valencia PA [Physician Video Production Assistant, Cardiology] - 02/23/25 11:30 am Kristin Barbosa [Primary Care Provider, Medical] - 02/20/25 11:00 am Prescriptions/Medication Reconciliation: Continued loratadine [Claritin] 10 mg Tablet 10 mg PO DAILY PRN (Reason: Allergies) Problem Reconciliation Problems Reviewed?: Yes Patient Discharge Instructions Patient Instructions: DI for High Blood Pressure, DI for Tachycardia, DI for Chest Pain Print Language: Azeri Providers Primary Care Provider: Kristin Barbosa Admit Provider: Fuad Sebastian Attending Provider: Fuad Sebastian
[2025-02-13 15:05] LABS: Adenovirus,PCR Not Detected (NotDetected); Bordetella Pertussis Not Detected (NotDetected); Chlamydophila Pneumoniae, PCR Not Detected (NotDetected); Coronavirus 19, PCR Not Detected (NotDetected); Coronavirus 229E Not Detected (NotDetected); Coronavirus NL63 Not Detected (NotDetected); Coronavirus OC43 Not Detected (NotDetected); Coronovirus HKU1,PCR Not Detected (NotDetected); Human Metapneumovirus Not Detected (NotDetected); Influenza A, PCR Not Detected (NotDetected); Influenza AH1, 2009 Not Detected (NotDetected); Influenza AH1, PCR Not Detected (NotDetected); Influenza AH3,PCR Not Detected (NotDetected); Influenza B, PCR Not Detected (NotDetected); Mycoplasma Pneumoniae, PCR Not Detected (NotDetected); Parainfluenza 1, PCR Not Detected (NotDetected); Parainfluenza 2, PCR Not Detected (NotDetected); Parainfluenza 3, PCR Not Detected (NotDetected); Parainfluenza 4, PCR Not Detected (NotDetected); Respiratory Syncytial Virus Not Detected (NotDetected); Rhinovirus/Enterovirus Not Detected (NotDetected)
--- NOTE | 2025-02-17 11:07 | SW/DCPLANNER ---
Phoned patient x2. No answer and left message with name and call back number. Sheila DEVI [employer] Cell Technician
== END 2025-02-13 15:32 | disposition home or self-care (01) ==
LOC: 2ND 22:21 → ER 22:21
PROVIDERS: Physician Assistant; Student in an Organized Health Care Education/Training Program; Admitting Provider Student in an Organized Health Care Education/Training Program; Emergency Provider Emergency Medicine; PCP Nurse Practitioner Family; Visit Provider Student in an Organized Health Care Education/Training Program
DX: R07.9 Chest pain, unspecified (principal); R00.0 Tachycardia, unspecified; E66.9 Obesity, unspecified; I10 Essential (primary) hypertension; Z82.49 Family history of ischemic heart disease and other diseases of the circulatory system; R06.00 Dyspnea, unspecified; Z68.38 Body mass index [BMI] 38.0-38.9, adult
CPT/HCPCS: 99284; 0223U; 36415; 75574; 80053; 83735; 84484; 85025; 85651; 86140; 87633; 93005; 93270; 93306; G0378; Q9967

== ENCOUNTER 2025-02-19 12:54 | Outpatient (CLI) | payer OTHER, SELFPAY ==
--- NOTE | 2025-02-19 12:59 | CA_ITS ---
FINAL REPORT TECHNIQUE: Color Doppler, duplex Doppler and silva scale sonography of the bilateral neck arterial vasculature was performed. Velocities were measured in the carotid arteries. Stenosis evaluation based on the validated velocity criteria. CLINICAL HISTORY: DIZZINESS,SYNCOPE FINDINGS: The peak systolic velocity of the right common carotid artery is 118 cm/s. The peak systolic velocity of the right internal carotid artery is 82 cm/s and end diastolic velocity 29 cm/s. The ICA/CCA ratio is 0.70. No significant plaque is present. The right external carotid artery is patent. The right vertebral artery is patent with antegrade flow. The peak systolic velocity of the left common carotid artery is 110 cm/s. The peak systolic velocity of the left internal carotid artery is 57 cm/s and end diastolic velocity 28 cm/s. The ICA/CCA ratio is 0.60. No significant is present. The left external carotid artery is patent.The left vertebral artery is patent with antegrade flow. IMPRESSION: No evidence of stenosis. Bilateral patent vertebral arteries with antegrade flow. If indicated, CTA or MRA could further evaluate. Reviewed, Interpreted and Dictated by Slick Resendiz MD Transcribed by Zaina Boswell Authenticated and [facility]
--- OUTSIDE RECORDS SUMMARY | 2025-02-19 13:57 | XMS_ITS | Continuity of Care Document ---
Author Organization [place] - Actual Experience, [employer] [facility] Address [address] [place] [address] Assessment No assessment recorded. Plan of Treatment Reminders Order Date Submit Date Provider Last Modified By Organization Details Last Modified Time Details Appointments None recorded. Lab CBC w/ auto diff 2024 025 [facility]), [address] [place], [address], 5 15:32:16 CMP, serum or plasma 2024 025 [facility]), [address] [place], [address], 5 15:32:16 TSH + free T4, serum 2024 025 [facility]), [address] [place], [address], 5 15:32:16 magnesium, serum or plasma 2024 025 [facility]), [address] [place], [address], 5 15:32:15 HbA1c (hemoglobi n A1c), blood 2024 025 [facility]), [address] [place], [address], 5 15:32:16 cobalamin and folate panel, serum 2024 025 [facility] [address], [place], [address], 5 15:32:15 metanephri ne, normetanep hrine and creatinine panel, urine 2024 025 [facility] [address], [place], [address], 15:32:16 Referral None recorded. Procedures None recorded. Surgeries None recorded. Imaging US, duplex, carotid artery - first avail 2024 025 [facility] (Scheduling), [address], [place], [address], 5 11:20:46 CT, head + brain, w/o contrast [address] (Scheduling), [address], [place], [address], 5 12:31:46 home sleep study 2024 025 [facility], [address] [facility], [facility], [place], [address], 09:15:30 Medication Orders None recorded. Patient TargetsNo targets recorded. Patient InstructionsNo instructions recorded. Reason for Referral None Reported. Results Created Date Observation Date Name Description Value Unit Range Abnormal Flag Note LastModifiedBy Organization Detail LastModifiedTime 02/08/2002/07/2025 XR, chest , 1 view No observ ation record ed. [address], [place], [address], 02/09/2025 09:35:41 02/09/20 25 02/07/2025 elect morris diogr am, routi ne ECG, 12 leads min No observ ation record ed. [address], [place], [address], 02/09/2025 09:35:18 02/10/20 25 02/09/2025 CT, angio gram, chest , w/ contr ast No observ ation record ed. [address], [place], [address], 02/09/2025 17:09:18 02/14/20 25 02/13/2025 US, doppl er echoc ardio gram No observ ation record ed. [address], [place], [address], 02/13/2025 11:51:29 02/14/20 25 02/13/2025 CT, angio gram, coron carley arter ies, w/ contr ast No observ ation record ed. [address], [place], [address], 02/13/2025 14:48:14 02/15/20 25 02/12/2025 elect rocar diogr am No observ ation record ed. [address], [place], [address], 02/16/2025 08:55:16 Result Notes None recorded. Problems Name Problem SNOMED Code Status Onset Date Resolution Date Notes Provider Name and Address Organization Details Recorded Time Viral syndrome 857323408 Active 2022 PILLO GARCIA [address] [place] [address], [id number] , [employer] 3 11:54:31 Syncope 200575989 Active 2024 Kristin Barbosa APRN [address] [place] [address], [phone] , [employer] 5 15:28:10 Snoring 85081383 Active 2024 Kristin Barbosa APRN [address] [place] [address], [address] , [employer] 15:28:20 Generali zed anxiety disorder 66146804 Active 2018 Problem Code: F41.1; Problem Code Type: ICD-10; Not Available [facility] 2 22:50:14 Acute suppurat cahris otitis media 361684151 Completed 201806/04/2019 Not Available [facility] 2 22:50:14 Hyperten sive disorder 22771850 Active 2019 Problem Code: I10; Problem Code Type: ICD-10; Not Available [facility] 22:50:14 Acute frontal sinusiti s 36492946 Completed 201901/29/2020 Problem Code: J01.10; Problem Code Type: ICD-10; Not Available [facility] 22:50:14 Acute pansinus itis 2344190 Completed 201806/04/2019 Problem Code: J01.40; Problem Code Type: ICD-10; Not Available [facility] 2 22:50:14 Streptoc occal sore throat 84127564 Active 2018 Problem Code: J02.0; Problem Code Type: ICD-10; Not Available [facility] 22:50:14 Disorder of upper respirat ory system Active 2021 Problem Code: J06.9; Problem Code Type: ICD-10; Not Available [facility] 22:50:14 Disorder of upper respirat ory system Completed 201806/04/2019 Problem Code: J06.9; Problem Code Type: ICD-10; Not Available [facility] 2 22:50:15 Cough 12619821 Active 2019 Problem Code: R05; Problem Code Type: ICD-10; Not Available [facility] 22:50:15 Pyrexia of unknown origin 7230807 Active 2018 Problem Code: R50.9; Problem Code Type: ICD-10; Not Available [facility] 2 22:50:15 Headache 01059759 Active 2019 Problem Code: R51; Problem Code Type: ICD-10; Not Available [facility] 22:50:15 Syncope and collapse 591358459 Completed 201904/19/2021 Problem Code: R55; Problem Code Type: ICD-10; Not Available [facility] 22:50:15 Acute pharyngi tis 910979125 Active 2021 Not Available [facility] 22:50:15 Acute bronchit is 88771007 Active 2020 Problem Code: J20.9; Problem Code Type: ICD-10; Not Available [facility] 22:50:16 Body mass index 30+ - obesity 017438172 Active 2019 Problem Code: Z68.35; Problem Code Type: ICD-10; Not Available [facility] 22:50:16 Problem Notes None recorded. Medical Equipment None Reported. Allergies Allergen ID Allergen Name Allergen Category Reaction Reaction Severity Criticality Documentation Date Start Date Code Code System Note Provider Name and Address Organization Details Recorded Time 86580 codeine sulfate medicatio n Not available Not available Not available 05/16/2022 04432 RxNorm Not Available [facility] 22:54:23 Medications Name Sig Start Date Stop Date Status Note LastModified by Organization Details LastModified Time amoxicillin 500 mg capsule take 1 capsule (500 mg) by oral route every 12 hours for 10 days 07/21 completed Not Available Not Available Not Available promethazin e-DM 6.25 mg-15 mg/5 mL oral syrup TAKE FIVE ML BY MOUTH EVERY 6 HOURS NEEDED FOR COUGH 02/16 completed Not Available Not Available Not Available paroxetine 10 mg tablet take 1 tablet (10 mg) by oral route once daily 07/04 completed Not Available Not Available Not Available azithromyci n 250 mg tablet take 2 tablets (500 mg) by oral route once daily for 1 day then 1 tablet (250 mg) by oral route once daily for 4 days 09/21 completed Not Available Not Available Not Available ondansetron HCl 4 mg tablet 08/11 completed Not Available Not Available Not Available prednisone 20 mg tablet take 2 tablets (40 mg) by oral route once daily 09/21 completed Not Available Not Available Not Available amoxicillin 500 mg tablet take 1 tablet (500 mg) by oral route every 12 hours for 10 days 01/28 completed Not Available Not Available Not Available Tessalon Perles 100 mg capsule one pill every 8 hours as needed for cough 01/11 completed Not Available Not Available Not Available amoxicillin 875 mg tablet Take 1 tablet(s) by mouth q12h for 10 days 11/12 completed Not Available Not Available Not Available doxycycline monohydrate 100 mg capsule Take 1 capsule twice a day by oral route with meal(s), for sinusitis . 10/14 completed Not Available Not Available Not Available paroxetine 30 mg tablet take 1 tablet (30 mg) by oral route once daily 01/28 completed Not Available Not Available Not Available pantoprazol e 40 mg tablet,wei yed release TAKE ONE TABLET BY MOUTH EVERY DAY ON an EMPTY stomach active Not Available Not Available No t Available bromphenira mine-pseudo ephedrine-D M 2 mg-30 mg-10 mg/5 mL oral syrup Take 10 mL every 4 hours by oral route. 08/11 completed Not Available Not Available Not Available amoxicillin 875 mg-potassiu m clavulanate 125 mg tablet TAKE ONE TABLET BY MOUTH EVERY TWELVE HOURS FOR 7 DAYS 02/16 completed Not Available Not Available Not Available ranolazine ER 500 mg tablet,exte nded release,12 hr TAKE ONE TABLET BY MOUTH TWICE DAILY active Not Available Not Available No t Available ProAir HFA 90 mcg/actuati on aerosol inhaler inhale 1 - 2 puffs (90 - 180 mcg) by inhalatio n route every 4 hours as needed 2023 active Not Available Not Available Not Avai lable All Day Allergy (cetirizine ) 10 mg capsule 2018 active Not Available Not Available Not Avai lable Vitals Date Recorded Body height Body mass index (BMI) Body weight Body temperature Heart rate Oxygen saturation Oxygen saturation in Arterial blood by Pulse oximetry Systolic blood pressure Diastolic blood pressure Provider Name and Address Organization Details Last Updated DateTime 5 177.8 cm 38 kg/m2 663683. 98 g 97.2 [degF] 64 /min 97 % 97 % 111 mm[Hg] 72 mm[Hg] CIRILO KNIGHT [facility] [employer] 5 14:41:39 Social History Question Answer Notes LastModified by Organizat ion Details LastModified Time Tobacco Smoking Status Never Smoker SocialHis toryQuest ion: 'Tobacco/ Alcohol/S upplement s'; SocialHis toryRespo nse: 'Never Smoker'; Not Available [facility] 05/16/2022 22:55:58 In The 14 Days Before Symptom Onset, Have You Had Close Contact With A Laboratory-confir med COVID-19 While That Case Was Ill? No [email or web address] Information not available 07/21/2023 In The 14 Days Before Symptom Onset, Have You Had Close Contact With A Person Who Is Under Investigation For COVID-19 While That Person Was Ill? No [email or web address] Information not available 07/21/2023 Have You Been To An Area Known To Be High Risk For COVID-19? No [email or web address] Information not available 07/21/2023 What Was The Date Of Your Most Recent Tobacco Screening? 02/16/2025 [email or web address] Information not available 02/16/2025 What Is Your Relationship Status? [email or web address] Information not available 07/21/2023 Has Tobacco Cessation Counseling Been Provided? No [email or web address] Information not available 07/21/2023 Have You Recently Traveled Abroad? No Information not available 07/21/2023 Sex: Male Functional Status Question Answer Note LastModified by Organization D etails LastModified Time Do you or have you ever used any other forms of tobacco or nicotine? No [email or web address] Information not available 07/21/2023 Mental Status None recorded. Family History Relationship Description Onset Age of this Age Resolved Age Notes LastModified by Organization Details LastModified Time Unspecified Relation Family history of diabetes mellitus type 2 Relati ve: ''; [email or web address] Not available 05/16/2022 23:04:04 Medical History No medical history recorded. Immunizations Vaccine Type Date Status Note Provider Nam e and Address Organization Details Recorded Time Hep B, adolescent or pediatric 7 completed Not Available [facility] 02/16/2025 14:34:36 OPV 8 completed Not Available [facility] 02/16/2025 14:34:36 Hep B, adolescent or pediatric 8 completed Not Available [facility] 02/16/2025 14:34:36 MMR 8 completed Not Available [facility] 02/16/2025 14:34:36 varicella 8 completed Not Available [facility] 02/16/2025 14:34:36 DTaP, unspecified formulation 9 completed Not Available [facility] 02/16/2025 14:34:36 Hib (PRP-OMP) 9 completed Not Available [facility] 02/16/2025 14:34:36 Past Encounters Encounter ID Performer Location Encounter Start Date Encounter Closed Date Diagnosis/Indication Diagnosis SNOMED-CT Code Diagnosis ICD10 Code Diagnosis Note [id number] [phone] 02/16/2025 14:34:05 02/16/2025 16:03:19 Syncope 353036692 R55 Keep appointmen t with cardiology and complete the Holter monitor. Obtain carotid duplex and CT of the head in addition to further labs to rule out noncardiac cause of his symptoms. I did spend a significan t amount of time going over his cardiac test results and hospital records with him today and he was reassured that he did have an adequate cardiac evaluation including normal echo and normal CCTA. He is to rest and avoid getting overheated , I encouraged adequate hydration. Avoidance of caffeine. Snoring 19200032 R06.83 Health Concerns Section Related Observation LastModified by Organization Detai ls LastModified Time None Recorded Concern Status LastModified by Organization Details LastModified Time None Recorded Payers Encounter Date Sequence Insurance Name Policy Number Policy Farias Covered Member ID Farias Member ID Guarantor Name 02/16/2025 1 [employer] - [facility]LR [facility] Abdiaziz Hodge [id number] 1 Ariana Triana Notes Date Note Type Note Provider Name and Address Organization Details Recorded Time 02/16/2025 text/html Hospitalization Contact RecordReported bypatient.Follow UpHospital: ([facility] date of discharge: (Please enter in format 'MM/DD/YYYY') (02/13/2025)Notes:Amador mariscal was admitted to the hospital via the emergency room twice last week due to syncope and presyncope with dizziness, shortness of breath, tremoring, tachycardia, and chills. He reports over the past week he has had multiple episodes both at rest and with exertion. He has had significant headaches with blurred vision. EKG and cardiac enzymes in the hospital were unremarkable. C. T of the chest ruled out pulmonary embolus. EF was 55%. He had a normal CCTA of the heart. He appears very anxious today but denies that he is anxious and states he has no more stress than normal. He denies cough and nasal congestion. He denies GI symptoms and urinary symptoms. He states yesterday he was eating in a restaurant and developed diaphoresis, felt dizzy with blurred vision, and felt as though he would faint. He was unable to finish his meal and had to go lie down in the car. He states after that episode he does not even remember his driving him home from the restaurant. He was started on pantoprazole in the hospital but denies that he has any reflux or GI symptoms. He was also started on carvedilol and ranolazine. He states these medications have not changed any of his symptoms. He reports his blood pressure has been intermittently low with systolics in the 80s and as high as the 170s. He reports that at times his heart rate has been up to 150-170 when he has checked it at home. He is wearing a 14-day media monitor that was placed before he was discharged from hospital. He has significant family history of cardiac disease. His mother had a NH in her early 50s but she was a heavy smoker. His states he does snore loudly and she does witness him have brief periods of apnea. Kristin Barbosa APRN [address] [facility], [place], [address], [facility] [employer] 02/16/2025 17:32:33
--- OUTSIDE RECORDS SUMMARY | 2025-02-19 13:57 | XMS_ITS | Data Portability ---
Author Organization [employer] [facility] Address [address] [place] [address] Assessment Encounter Date Assessment Date Assessment LastModified by Organization Details LastModified Time 07/21/2023 07/21/2023 Patient has negative POC testing at this time. Advised patient to treat symptomatically with fbla-azx-qcvucjj Tylenol or Motrin and to utilize Mucinex if the congestion and cough continues. Bromfed prescription sent in to provide symptomatic relief, particularly at night. Instructed to increase fluids and return for further testing in 3 to 5 days if symptoms worsen or do not resolve. [email or web address] Not available 07/21/2023 11:55:50 Plan of Treatment Reminders Order Date Submit Date Provider Last Modified By Organization Details Last Modified Time Details Appointments None recorded. Lab CBC w/ auto diff 2024 025 [place] [facility], [address] [place], [address], 5 15:32:16 CMP, serum or plasma 2024 025 [place] [facility] [address] [place], [address], 5 15:32:16 TSH + free T4, serum 2024 025 [place] [facility], [address] [place] [address], [address], 5 15:32:16 magnesium, serum or plasma 2024 025 [place] [facility], [address] [place] [address], [address], 5 15:32:15 HbA1c (hemoglobi n A1c), blood 2024 025 [place] [facility] [address] [facility], [place], [address], 5 15:32:16 cobalamin and folate panel, serum 2024 025 [place] [facility] [address] [facility], [place], [address], 5 15:32:15 metanephri ne, normetanep hrine and creatinine panel, urine 2024 025 [place] [facility] [address] [facility], [place], [address], 5 15:32:16 rapid flu (A+B) [address], [address] [place] [address], [address], 5 16:36:49 rapid SARS CoV 2 Ag, QL, IA, upper respirator y specimen [address], [address] [place] [address], [address], 5 16:36:49 rapid flu (A+B) [address], [address] [place] [address], [address], 3 11:49:17 rapid SARS CoV 2 Ag, QL, IA, upper respirator y specimen [address], [address] [place] [address], [address], 3 11:49:18 Referral None recorded. Procedures None recorded. Surgeries None recorded. Imaging US, duplex, carotid artery - first avail 2024 025 [facility] (Scheduling), [address], [place], [address], 5 11:20:46 CT, head + brain, w/o contrast [email or web address] (Scheduling), [address], [place], [address], 5 12:31:46 home sleep study 2024 025 [facility], [address] [facility], [address], [place], [address], 5 09:15:30 Medication Orders promethazi ne-DM 6.25 mg-15 mg/5 mL oral syrup [address] [facility], [address] [place] [address], [address], 5 15:37:09 amoxicilli n 875 mg-potassi um clavulanat e 125 [address] tablet [address] [facility], [address] [place] [address], [address], 5 15:37:10 doxycyclin e monohydrat e 100 [address] capsule [address] [facility], [address] [place] [address], [address], 5 15:52:43 promethazi ne-DM 6.25 mg-15 mg/5 mL oral syrup 2023 024 [facility], [address] [place] [address], [address], 5 14:41:46 ProAir HFA 90 mcg/actuat ion aerosol inhaler 2023 024 [place] [facility], [address] [place] [address], [address], 4 13:54:19 Bromfed DM 2 mg-30 mg-10 mg/5 mL oral syrup 2022 023 [email or web address], [address] [place] [address], [address], 13:16:09 Patient TargetsNo targets recorded. Patient InstructionsNo instructions recorded. Reason for Referral None Reported. Results Created Date Observation Date Name Description Value Unit Range Abnormal Flag Note LastModifiedBy Organization Detail LastModifiedTime 07/21/2007/21/2023 rapid SARS CoV 2 Ag, QL, IA, upper respi rator y speci men SARS CoV Ag negati ve Not Available [address], [address], 07/21/2023 11:36:35 07/21/20 23 07/21/2023 rapid flu (A+B) Flu A negati ve Not Available [address], [address], 07/21/2023 11:36:34 07/21/20 23 07/21/2023 rapid flu (A+B) Flu B negati ve Not Available [address], [address], 07/21/2023 11:36:34 10/14/19 25 10/14/2024 rapid flu (A+B) Flu A negati ve Not Available [address], [address], 10/14/2024 15:51:18 10/14/19 25 10/14/2024 rapid flu (A+B) Flu B negati ve Not Available [address], [address], 10/14/2024 15:51:18 10/14/19 25 10/14/2024 rapid SARS CoV 2 Ag, QL, IA, upper respi rator y speci men SARS CoV Ag negati ve Not Available [address], [address], 10/14/2024 15:51:19 02/08/20 25 02/07/2025 XR, chest , 1 view No observ ation record ed. [address], [place], [address], 02/09/2025 09:35:41 02/09/20 25 02/07/2025 elect morris murray am, navdeep ne ECG, 12 leads min No observ ation record ed. [place] [id number], [place], [address], 02/09/2025 09:35:18 02/10/20 25 02/09/2025 CT, angio gram, chest , w/ contr ast No observ ation record ed. [place] [id number] [facility], [place], [address], 02/09/2025 17:09:18 02/14/20 25 02/13/2025 US, doppl er echoc ardio gram No observ ation record ed. [place] [id number] [facility], [place], [address], 02/13/2025 11:51:29 02/14/20 25 02/13/2025 CT, angio gram, coron carley arter ies, w/ contr ast No observ ation record ed. [place] [id number] [facility], [place], [address], 02/13/2025 14:48:14 02/15/2002/12/2025 ricki murray chepe No observ ation record ed. [email or web address] [facility] [address], [place], [address], 02/16/2025 08:55:16 Result Notes None recorded. Problems Name Problem SNOMED Code Status Onset Date Resolution Date Notes Provider Name and Address Organization Details Recorded Time Viral syndrome 597727714 Active 2022 HERB GARCIA-[address], [address] , [employer]. 3 11:54:31 Syncope 564515742 Active 2024 Kristin Barbosa APRN [address] [place] [address], [address] , [employer]. 5 15:28:10 Snoring 84603235 Active 2024 Kristin Barbosa APRN [address] [place] [address], [address] , [employer]. 5 15:28:20 Generali zed anxiety disorder 67796859 Active 2018 Problem Code: F41.1; Problem Code Type: ICD-10; Not Available [facility] 2 22:50:14 Acute suppurat charis otitis media 504100603 Completed 201806/04/2019 Not Available [facility] 2 22:50:14 Hyperten sive disorder 01573942 Active 2019 Problem Code: I10; Problem Code Type: ICD-10; Not Available [facility] 2 22:50:14 Acute frontal sinusiti s 29703728 Completed 201901/29/2020 Problem Code: J01.10; Problem Code Type: ICD-10; Not Available [facility] 2 22:50:14 Acute pansinus itis 1672703 Completed 201806/04/2019 Problem Code: J01.40; Problem Code Type: ICD-10; Not Available [facility] 22:50:14 Streptoc occal sore throat 73564989 Active 2018 Problem Code: J02.0; Problem Code Type: ICD-10; Not Available [facility] 22:50:14 Disorder of upper respirat ory system 676241405 Active 2021 Problem Code: J06.9; Problem Code Type: ICD-10; Not Available [facility] 22:50:14 Disorder of upper respirat ory system 308065158 Completed 201806/04/2019 Problem Code: J06.9; Problem Code Type: ICD-10; Not Available [facility] 22:50:15 Cough 95322326 Active 2019 Problem Code: R05; Problem Code Type: ICD-10; Not Available [facility] 22:50:15 Pyrexia of unknown origin 9827901 Active 2018 Problem Code: R50.9; Problem Code Type: ICD-10; Not Available [facility] 22:50:15 Headache 54410122 Active 2019 Problem Code: R51; Problem Code Type: ICD-10; Not Available [facility] 22:50:15 Syncope and collapse 028840747 Completed 201904/19/2021 Problem Code: R55; Problem Code Type: ICD-10; Not Available [facility] 22:50:15 Acute pharyngi tis 140904747 Active 2021 Not Available [facility] 22:50:15 Acute bronchit is 84724174 Active 2020 Problem Code: J20.9; Problem Code Type: ICD-10; Not Available [facility] 22:50:16 Body mass index 30+ - obesity 472316177 Active 2019 Problem Code: Z68.35; Problem Code Type: ICD-10; Not Available [facility] 22:50:16 Problem Notes None recorded. Medical Equipment None Reported. Allergies Allergen ID Allergen Name Allergen Category Reaction Reaction Severity Criticality Documentation Date Start Date Code Code System Note Provider Name and Address Organization Details Recorded Time 56813 codeine sulfate medicatio n Not available Not available Not available 05/16/2022 24197 RxNorm Not Available [facility] 2 22:54:23 Medications Name Sig Start Date Stop [...] Details Last Updated DateTime 5 177.8 cm 35.2 kg/m2 641327. 13 g 99.3 [degF] 97 /min 95 % 95 % 128 mm[Hg] 82 mm[Hg] Pattie Marsh [employer] 5 15:51:03 Date Recorded Body height Body mass index (BMI) Body weight Body temperature Heart rate Oxygen saturation Oxygen saturation in Arterial blood by Pulse oximetry Systolic blood pressure Diastolic blood pressure Provider Name and Address Organization Details Last Updated DateTime 5 177.8 cm 38 kg/m2 742298. 98 g 97.2 [degF] 64 /min 97 % 97 % 111 mm[Hg] 72 mm[Hg] CIRILO KNIGHT [facility] 5 14:41:39 Date Recorded Oxygen saturation Oxygen saturation in Arterial blood by Pulse oximetry Heart rate Body temperature Body weight Body mass index (BMI) Body height Systolic blood pressure Diastolic blood pressure Provider Name and Address Organization Details Last Updated DateTime 3 99 % 99 % 84 /min 98.5 [degF] 211582. 49 g 39.6 kg/m2 177.8 cm 138 mm[Hg] 87 mm[Hg] JOLENE VARELA [employer] 3 11:31:02 Date Recorded Body weight Body temperature Heart rate Oxygen saturation Oxygen saturation in Arterial blood by Pulse oximetry Systolic blood pressure Diastolic blood pressure Provider Name and Address Organization Details Last Updated DateTime 4 779417. 62 g 99.5 [degF] 92 /min 97 % 97 % 121 mm[Hg] 70 mm[Hg] CIRILO KEMPMIKE [employer] 4 13:16:06 Social History Question Answer Notes LastModified by Organizat ion Details LastModified Time Tobacco Smoking Status Never Smoker SocialHis toryQuest ion: 'Tobacco/ Alcohol/S upplement s'; SocialHis toryRespo nse: 'Never Smoker'; Not Available [facility] 05/16/2022 22:55:58 In The 14 Days Before Symptom Onset, Have You Had Close Contact With A Laboratory-confir med COVID-19 While That Case Was Ill? No [email or web address] Information not available 07/21/2023 In The 14 Days Before Symptom Onset, Have You Had Close Contact With A Person Who Is Under Investigation For COVID-19 While That Person Was Ill? No [email or web address] Information not available 07/21/2023 Have You Been To An Area Known To Be High Risk For COVID-19? No [email or web address] Information not available 07/21/2023 What Was The Date Of Your Most Recent Tobacco Screening? 02/16/2025 [email or web address] Information not available 02/16/2025 What Is Your Relationship Status? [email or web address] Information not available 07/21/2023 Has Tobacco Cessation Counseling Been Provided? No [email or web address] Information not available 07/21/2023 Have You Recently Traveled Abroad? No [email or web address] Information not available 07/21/2023 Sex: Male Functional Status Question Answer Note LastModified by Organization D etails LastModified Time Do you or have you ever used any other forms of tobacco or nicotine? No [email or web address] Information not available 07/21/2023 Mental Status None [...] adolescent or pediatric 7 completed Not Available [facility] 02/16/2025 14:34:36 OPV 8 completed Not Available [facility] 02/16/2025 14:34:36 Hep B, adolescent or pediatric 8 completed Not Available [facility] 02/16/2025 14:34:36 MMR 8 completed Not Available [facility] 02/16/2025 14:34:36 varicella 8 completed Not Available [facility] 02/16/2025 14:34:36 DTaP, unspecified formulation 9 completed Not Available [facility] 02/16/2025 14:34:36 Hib (PRP-OMP) 9 completed Not Available [facility] 02/16/2025 14:34:36 Past Encounters Encounter ID Performer Location Encounter Start Date Encounter Closed Date Diagnosis/Indication Diagnosis SNOMED-CT Code Diagnosis ICD10 Code Diagnosis Note [id number] ENRRIQUE GARCIAP-[address] [address] 07/21/2023 11:17:29 07/21/2023 11:54:10 Cough 08229396 R05.9 Viral syndrome 792723092 B34.9 [id number] Kristin Barbosa APRN [address] [address] 08/11/2024 12:53:07 08/11/2024 13:41:24 Acute sinusitis 53538215 J01.90 Patient likely has an acute bacterial sinusitis. Will treat as below. No signs of preseptal or orbital cellulitis , meningismu s, or neurologic changes concerning for intracrani al process. Instructed family to monitor patient closely and call office for any of these symptoms. Supportive care reviewed: raising HOB, humidifier use, saline nasal spray, rest, encourage PO fluids and monitor hydration status, infection control measures. Recommende d acetaminop hen/ibupro fen PRN pain, fever; reviewed appropriat e doses. Follow-up as below. Acute righ t otitis media 886418201 H66.91 Acute bronchitis 3192734 2 J20.9 Body mass index 30+ - obesity 341264989 Z68.39 [id number] [place] [address] 10/14/2024 15:26:53 10/14/2024 16:52:19 Cough 04544219 R05.9 Acute sero us otitis media of bilateral ears 8827522621 894854 H65.03 Body mass index 30+ - obesity 328056041 Z68.35 [id number] [place] [address] 02/16/2025 14:34:05 02/16/2025 16:03:19 Syncope 390713969 R55 Keep appointmen t with cardiology and [...] encouraged adequate hydration. Avoidance of caffeine. Snoring 46248094 R06.83 Health Concerns Section Related Observation LastModified by Organization Detai ls LastModified Time None Recorded Concern Status LastModified by Organization Details LastModified Time None Recorded Advance Directives Directive None Recorded Payers Insurance Date Sequence Insurance Name Policy Number Policy Farias Covered Member ID Farias Member ID Guarantor Name 10/13/2024 1 *SELF PAY* Maryam Triana 08/11/2024 SLIDING FEE SCHEDULE - DISCOUNT Ariana Triana 02/16/2025 1 [place] [id number] Abdiaziz Hodge [id number] Ariana Triana 02/16/2025 1 [place] [id number] Abdiaziz Palmalirio [id number] Ariana Triana 02/16/2025 1 [facility] Abdiaziz Hodge [id number] Ariana Triana Notes Date Note Type Note Provider Name and Address Organization Details Recorded Time 07/21/2023 text/html Cough and conges tion for the past 2-3 days. No fevers. No N/V/D. No sore throat. is and he would like to be tested for covid and flu. PILLO GARCIA [address] [place] [address], [phone], [employer]. 07/21/2023 11:55:54 08/11/2024 text/html Upper Respirator y SymptomsReported bypatient.Location:hea d; chest; throat; nasal; face Quality:productive cough;congested;wheezy cough;hurts to swallow;nasal discharge Severity:moderate Duration:symptoms lasting over 2 weeks Onset/Timing:gradual; date of onset: (began 4 weeks ago) Context:no sick contacts; no foreign travel; non-smoker;allergies Alleviating Factors:analgesics; antihistamines; decongestant Associated Symptoms:no chest pain;yellow sputum;wheezing;fatigu e;morning cough;sore throat;headache;malais e Kristin Barbosa APRN [address] [place], [address], [employer] 08/11/2024 13:42:27 10/14/2024 text/html 29 year old male presents with cough, head congestin, ear pain, low grade fever x 2 days. States he has taken OTC cough and cold medicine without relief. - known ill exposures. - testing today. Bilateral TM red, throat red. pt appears ill. Will treat with abx and cough meds today. Educated on PO hydration, rest, tylenol/motrin PRN. Patient agrees with plan and will return for worsening symptoms. Belinda Mckinney APRN [address] [place], [address], [employer] 10/14/2024 16:32:39 02/16/2025 text/html Hospitalization Contact RecordReported bypatient.Follow UpHospital: ([facility]); date of discharge: (Please enter in format 'MM/DD/YYYY') (02/13/2025)Notes:Shirin herrera was admitted to the hospital via the [...] at home. He is wearing a 14-day quality assurance monitor final that was placed before he was discharged from hospital. He has significant family history of cardiac disease. His mother had a [place] in her early 50s but she was a heavy smoker. His states he does snore loudly and she does witness him have brief periods of apnea. Kristin Barbosa APRN [address] [facility], [place], [address], [employer] 02/16/2025 17:32:33
== END 2025-02-19 23:59 | disposition home or self-care (01) ==
LOC: RT 12:56
PROVIDERS: PCP Nurse Practitioner Family; Visit Provider Nurse Practitioner Family
DX: R55 Syncope and collapse (principal); R42 Dizziness and giddiness
CPT/HCPCS: 93880

== ENCOUNTER 2025-02-27 10:50 | Outpatient (CLI) | payer OTHER, SELFPAY ==
--- NOTE | 2025-02-27 10:54 | CT_ITS ---
FINAL REPORT TECHNIQUE: Thin section axial images were obtained from skull base to vertex without contrast. Coronal reconstruction images were obtained from the axial data. Exam was performed using dose reduction techniques such as automated exposure control, adjustment of the mA and kV according to patient size, and use of iterative reconstruction technique. CLINICAL HISTORY: SYNCOPE AND COLLAPSE FINDINGS: There is no mass effect or midline shift. There is no hydrocephalus. There is no intracranial hemorrhage. The posterior fossa is without acute abnormality. The basilar cisterns are preserved. The soft tissues are without acute abnormality. No acute osseous abnormality is identified. IMPRESSION: No acute intracranial abnormality. Reviewed, Interpreted and Dictated by Luisa Trent MD Transcribed by Zaina Boswell Authenticated and [facility]
--- OUTSIDE RECORDS SUMMARY | 2025-02-27 10:54 | XMS_ITS | Continuity of Care Document ---
Author Organization [place] - [employer], [facility] Address [address] [place] [address] Assessment No assessment recorded. Plan of Treatment Reminders Order Date Submit Date Provider Last Modified By Organization Details Last Modified Time Details Appointments None recorded. Lab CBC w/ auto diff 2024 025 [facility] [address] [place], [address], 18:07:50 CMP, serum or plasma 2024 025 [facility] [address] [place], [address], 5 18:07:51 TSH + free T4, serum 2024 025 [facility] ([place]), [address] [place], [address], 5 18:07:49 magnesium, serum or plasma 2024 025 [facility] [address] [place], [address], 5 18:07:53 HbA1c (hemoglobi n A1c), blood 2024 025 [facility] [address] [place], [address], 5 18:07:52 cobalamin and folate panel, serum 2024 025 [facility] [address], [place], [address], 18:07:52 metanephri ne, normetanep hrine and creatinine panel, urine 2024 025 RANTOUL [facility] ([place]), [address], [place], [address], 18:07:51 Referral None recorded. Procedures None recorded. Surgeries None recorded. Imaging US, duplex, carotid artery - first avail 2024 025 [facility] ([facility]uling), [address], [place], [address], 16:01:18 CT, head + brain, w/o contrast - first available appt [address] (Scheduling), [address], [place], [address], 08:25:44 home sleep study 2024 025 [facility], [address] [facility], [facility], [place], [address], 09:15:30 Medication Orders None recorded. Patient TargetsNo targets recorded. Patient InstructionsNo instructions recorded. Reason for Referral None Reported. Results Created Date Observation Date Name Description Value Unit Range Abnormal Flag Note LastModifiedBy Organization Detail LastModifiedTime 02/08/2002/07/2025 XR, chest , 1 view No observ ation record ed. [address], [place], [address], 02/09/2025 09:35:41 02/09/20 25 02/07/2025 elect morris diogr am, routi ne ECG, 12 leads min No observ ation record ed. [facility]28 [facility] [address], [place], [address], 02/09/2025 09:35:18 02/10/20 25 02/09/2025 CT, angio gram, chest , w/ contr ast No observ ation record ed. [facility]9 [facility] [address], [place], [address], 02/09/2025 17:09:18 02/14/20 25 02/13/2025 US, doppl er echoc ardio gram No observ ation record ed. [address], [place], [address], 02/13/2025 11:51:29 02/14/20 25 02/13/2025 CT, angio gram, coron carley arter ies, w/ contr ast No observ ation record ed. [place] [id number], [place], [address], 02/13/2025 14:48:14 02/15/20 25 02/12/2025 elect rocar diogr am No observ ation record ed. [facility]9 [facility] [address], [place], [address], 02/16/2025 08:55:16 02/20/20 25 02/19/2025 US, duple x, carot id arter y No observ ation record ed. [email or web address] [facility] [address], [place], [address], 02/20/2025 14:53:58 Result Notes None recorded. Problems Name Problem SNOMED Code Status Onset Date Resolution Date Notes Provider Name and Address Organization Details Recorded Time Viral syndrome 033852618 Active 2022 HERB GARCIA-DAHIANA [address] [place], [address] , [place] [employer] 3 11:54:31 Syncope 024513188 Active 2024 Kristin Barbosa APRN [address] [place], [address] , [employer] 5 15:28:10 Snoring 50708141 Active 2024 Kristin Barbosa, FOOD SAFETY TECHNICIAN [address] [place], [address] , [employer] 5 15:28:20 Generali zed anxiety disorder 09187303 Active 2018 Problem Code: F41.1; Problem Code Type: ICD-10; Not Available [facility] 2 22:50:14 Acute suppurat charis otitis media 753091016 Completed 201806/04/2019 Not Available [facility] 22:50:14 Hyperten sive disorder 20249844 Active 2019 Problem Code: I10; Problem Code Type: ICD-10; Not Available [facility] 2 22:50:14 Acute frontal sinusiti s 67507569 Completed 201901/29/2020 Problem Code: J01.10; Problem Code Type: ICD-10; Not Available [facility] 2 22:50:14 Acute pansinus itis 2743838 Completed 201806/04/2019 Problem Code: J01.40; Problem Code Type: ICD-10; Not Available [facility] 2 22:50:14 Streptoc occal sore throat 09218433 Active 2018 Problem Code: J02.0; Problem Code Type: ICD-10; Not Available [facility] 2 22:50:14 Disorder of upper respirat ory system 470378256 Active 2021 Problem Code: J06.9; Problem Code Type: ICD-10; Not Available [facility] 22:50:14 Disorder of upper respirat ory system 488579829 Completed 201806/04/2019 Problem Code: J06.9; Problem Code Type: ICD-10; Not Available [facility] 2 22:50:15 Cough 55555666 Active 2019 Problem Code: R05; Problem Code Type: ICD-10; Not Available [facility] 22:50:15 Pyrexia of unknown origin 5183507 Active 2018 Problem Code: R50.9; Problem Code Type: ICD-10; Not Available [facility] 22:50:15 Headache 95147235 Active 2019 Problem Code: R51; Problem Code Type: ICD-10; Not Available [facility] 22:50:15 Syncope and collapse 216700179 Completed 201904/19/2021 Problem Code: R55; Problem Code Type: ICD-10; Not Available [facility] 22:50:15 Acute pharyngi tis 154645806 Active 2021 Not Available [facility] 22:50:15 Acute bronchit is 38519174 Active 2020 Problem Code: J20.9; Problem Code Type: ICD-10; Not Available [facility] 22:50:16 Body mass index 30+ - obesity 850298523 Active 2019 Problem Code: Z68.35; Problem Code Type: ICD-10; Not Available [facility] 22:50:16 Problem Notes None recorded. Medical Equipment None Reported. Allergies Allergen ID Allergen Name Allergen Category Reaction Reaction Severity Criticality Documentation Date Start Date Code Code System Note Provider Name and Address Organization Details Recorded Time 45593 codeine sulfate medicatio n Not available Not available Not available 05/16/2022 58479 RxNorm Not Available [facility] 22:54:23 Medications Name Sig Start Date Stop [...] Updated DateTime 5 177.8 cm 38 kg/m2 838773. 98 g 97.2 [degF] 64 /min 97 % 97 % 111 mm[Hg] 72 mm[Hg] CIRILO KNIGHT [place] [facility]. 5 14:41:39 Social History Question Answer Notes LastModified by Organizat ion Details LastModified Time Tobacco Smoking Status Never Smoker SocialHis toryQuest ion: 'Tobacco/ Alcohol/S upplement s'; SocialHis toryRespo nse: 'Never Smoker'; Not Available [facility] 05/16/2022 22:55:58 In The 14 Days Before Symptom Onset, Have You Had Close Contact With A Laboratory-confir med COVID-19 While That Case Was Ill? No [email or web address] Information not available 07/21/2023 In The 14 Days Before Symptom Onset, Have You Had Close Contact With A Person Who Is Under Investigation For COVID-19 While That Person Was Ill? No [email or web address] Information not available 07/21/2023 Have You Been To An Area Known To Be High Risk For COVID-19? No [email or web address] Information not available 07/21/2023 What Was The Date Of Your Most Recent Tobacco Screening? 02/16/2025 [email or web address] Information not available 02/16/2025 What Is Your Relationship Status? [email or web address] Information not available 07/21/2023 Has Tobacco Cessation Counseling Been Provided? No Information not available 07/21/2023 Have You Recently Traveled Abroad? No [email or web address] Information not available 07/21/2023 Sex: Male Functional Status Question Answer Note LastModified by Organization D etails LastModified Time Do you or have you ever used any other forms of tobacco or nicotine? No [email or web address] Information not available 07/21/2023 Mental Status None [...] adolescent or pediatric 7 completed Not Available [facility] 02/16/2025 14:34:36 OPV 8 completed Not Available [facility] 02/16/2025 14:34:36 Hep B, adolescent or pediatric 8 completed Not Available [facility] 02/16/2025 14:34:36 MMR 8 completed Not Available [facility] 02/16/2025 14:34:36 varicella 8 completed Not Available [facility] 02/16/2025 14:34:36 DTaP, unspecified formulation 9 completed Not Available [facility] 02/16/2025 14:34:36 Hib (PRP-OMP) 9 completed Not Available [facility] 02/16/2025 14:34:36 Past Encounters Encounter ID Performer Location Encounter Start Date Encounter Closed Date Diagnosis/Indication Diagnosis SNOMED-CT Code Diagnosis ICD10 Code Diagnosis Note [id number] [phone] 02/16/2025 14:34:05 02/16/2025 16:03:19 Syncope 401811365 R55 Keep appointmen t with cardiology and [...] encouraged adequate hydration. Avoidance of caffeine. Snoring 95203683 R06.83 Health Concerns Section Related Observation LastModified by Organization Detai ls LastModified Time None Recorded Concern Status LastModified by Organization Details LastModified Time None Recorded Payers Encounter Date Sequence Insurance Name Policy Number Policy Farias Covered Member ID Farias Member ID Guarantor Name 02/16/2025 1 ANUPAMA ANDREWSR OF [facility] Abdiaziz Hodge [id number] 1 Ariana Triana Notes Date Note Type Note Provider Name and Address Organization Details Recorded Time 02/16/2025 text/html Hospitalization Contact RecordReported bypatient.Follow UpHospital: ([facility]); date of discharge: (Please enter in [...] at home. He is wearing a 14-day threat monitoring analyst that was placed before he was discharged from hospital. He has significant family history of cardiac disease. His mother had a CO in her early 50s but she was a heavy smoker. His states he does snore loudly and she does witness him have brief periods of apnea. Kristin Barbosa, FOOD SAFETY TECHNICIAN [address] [place], [address], [place] [facility] [employer] 02/16/2025 17:32:33
--- OUTSIDE RECORDS SUMMARY | 2025-02-27 10:54 | XMS_ITS | Data Portability ---
Author Organization [employer], [facility] Address [address] [place] [address] Assessment Encounter Date Assessment Date Assessment LastModified by Organization Details LastModified Time 07/21/2023 07/21/2023 Patient has negative POC testing at this time. Advised patient to treat symptomatically with jann-wsu-eqydcey Tylenol or Motrin and to utilize Mucinex if the congestion and cough continues. Bromfed prescription sent in to provide symptomatic relief, particularly at night. Instructed to increase fluids and return for further testing in 3 to 5 days if symptoms worsen or do not resolve. [email or web address] Not available 07/21/2023 11:55:50 Plan of Treatment Reminders Order Date Submit Date Provider Last Modified By Organization Details Last Modified Time Details Appointments None recorded. Lab CBC w/ auto diff 2024 025 [facility], [address] [place] [address], [address], 5 18:07:50 CMP, serum or plasma 2024 025 [facility] [address] [place] [address], [address], 5 18:07:51 TSH + free T4, serum 2024 025 [facility], [address] [place] [address], [address], 5 18:07:49 magnesium, serum or plasma 2024 025 [facility], [address] [place] [address], [address], 5 18:07:53 HbA1c (hemoglobi n A1c), blood 2024 025 HAVANA [facility]), [address] [facility], [place], [address], 5 18:07:52 cobalamin and folate panel, serum 2024 025 VICKY [facility]), [address] [facility], [place], [address], 5 18:07:52 metanephri ne, normetanep hrine and creatinine panel, urine 2024 025 HAVANA [facility] ([place]), [address] [facility], [place], [address], 5 18:07:51 rapid flu (A+B) [address], [address] [place] [address], [address], 5 16:36:49 rapid SARS CoV 2 Ag, QL, IA, upper respirator y specimen [address], [address] [place] [address], [address], 5 16:36:49 rapid flu (A+B) [address], [address] [place] [address], [address], 3 11:49:17 rapid SARS CoV 2 Ag, QL, IA, upper respirator y specimen [address], [address] [place] [address], [address], 3 11:49:18 Referral None recorded. Procedures None recorded. Surgeries None recorded. Imaging US, duplex, carotid artery - first avail 2024 025 [facility] (Scheduling), [address], [place], [address], 5 16:01:18 CT, head + brain, w/o contrast - first available appt [address] (Scheduling), [address], [place], [place], [address], 5 08:25:44 home sleep study 2024 025 [facility], [address] [facility], [facility] [address], [place], [address], 5 09:15:30 Medication Orders promethazi ne-DM 6.25 mg-15 mg/5 mL oral syrup 2024 025 [facility], [address] [place] [address], [address], 5 15:37:09 amoxicilli n 875 mg-potassi um clavulanat e 125 mg tablet 2024 025 [facility], [address] [place] [address], [address], 5 15:37:10 doxycyclin e monohydrat e 100 mg capsule 2023 025 [facility], [address] [place] [address], [address], 5 15:52:43 promethazi ne-DM 6.25 mg-15 mg/5 mL oral syrup 2023 024 [facility], [address] [place] [address], [address], 5 14:41:46 ProAir HFA 90 mcg/actuat ion aerosol inhaler 2023 024 VICKY [facility], [address] [place] [address], [address], 4 13:54:19 Bromfed DM 2 mg-30 mg-10 mg/5 mL oral syrup 2022 023 [email or web address] [facility], [address] [place] [address], [address], 4 13:16:09 Patient TargetsNo targets recorded. Patient InstructionsNo instructions recorded. Reason for Referral None Reported. Results Created Date Observation Date Name Description Value Unit Range Abnormal Flag Note LastModifiedBy Organization Detail LastModifiedTime 07/21/2007/21/2023 rapid SARS CoV 2 Ag, QL, IA, upper respi rator y speci men SARS CoV Ag negati ve Not Available [address], [address], 07/21/2023 11:36:35 07/21/20 23 07/21/2023 rapid flu (A+B) Flu A negati ve Not Available [address], [address], 07/21/2023 11:36:34 07/21/20 23 07/21/2023 rapid flu (A+B) Flu B negati ve Not Available [address], [address], 07/21/2023 11:36:34 10/14/19 25 10/14/2024 rapid flu (A+B) Flu A negati ve Not Available [address], [address], 10/14/2024 15:51:18 10/14/19 25 10/14/2024 rapid flu (A+B) Flu B negati ve Not Available [address], [address], 10/14/2024 15:51:18 10/14/19 25 10/14/2024 rapid SARS CoV 2 Ag, QL, IA, upper respi rator y speci men SARS CoV Ag negati ve Not Available [address], [address], 10/14/2024 15:51:19 02/17/20 25 02/17/2025 TSH+F REE T4 TSH 1.200 uIU/m L 0.450- 4.500 normal Not Available [facility] ([facility]) [address] [place], [address], 02/19/2025 18:07:49 02/17/20 25 02/17/2025 TSH+F REE T4 T4,free(dire ct) 1.34 NG/dL 0.82-1 .77 normal Not Available [facility] ([facility]) [address] [place], [address], 02/19/2025 18:07:49 02/17/20 25 02/17/2025 CBC WITH DIFFE RENTI AL/PL ATELE T WBC 9.0 x10e3 /uL 3.4-10 .8 normal Not Available [facility] ([facility]) [address] [place], [address], 02/19/2025 18:07:50 02/17/20 25 02/17/2025 CBC WITH DIFFE RENTI AL/PL ATELE T RBC 5.85 x10e6 /uL 4.14-5 .80 above high normal Not Available [facility] ([facility]) [address] [place], [address], 02/19/2025 18:07:50 06/09/20 25 02/17/2025 CBC WITH DIFFE RENTI AL/PL ATELE T hemoglobin 16.1 g/dL 13.0-1 7.7 normal Not Available [facility] ([facility]) [address] [place], [address], 02/19/2025 18:07:50 02/17/20 25 02/17/2025 CBC WITH DIFFE RENTI AL/PL ATELE T hematocrit 50.1 % 37.5-5 1.0 normal Not Available [facility] ([facility]) [address] [place], [address], 02/19/2025 18:07:50 02/17/20 25 02/17/2025 CBC WITH DIFFE RENTI AL/PL ATELE T MCV 86 fL 79-97 normal Not Available [facility] ([facility]) [address] [place], [address], 02/19/2025 18:07:50 02/17/20 25 02/17/2025 CBC WITH DIFFE RENTI AL/PL ATELE T MCH 27.5 pg 26.6-3 3.0 normal Not Available [facility] ([facility]) [address] [place], [address], 02/19/2025 18:07:50 02/17/20 25 02/17/2025 CBC WITH DIFFE RENTI AL/PL ATELE T MCHC 32.1 g/dL 31.5-3 5.7 normal Not Available [facility] ([facility]) [address] [place], [address], 02/19/2025 18:07:50 02/17/20 25 02/17/2025 CBC WITH DIFFE RENTI AL/PL ATELE T RDW 12.7 % 11.6-1 5.4 Not Available [facility] ([facility]) [address] [place], [address], 02/19/2025 18:07:50 02/17/20 25 02/17/2025 CBC WITH DIFFE RENTI AL/PL ATELE T platelets 470 x10e3 /uL 150-45 0 above high normal Not Available [facility] ([facility]) [address] [place], [address], 02/19/2025 18:07:50 02/17/20 25 02/17/2025 CBC WITH DIFFE RENTI AL/PL ATELE T neutrophils 69 % not estab. normal Not Available [facility] ([facility]) [address] [facility], [place], [address], 02/19/2025 18:07:50 02/17/20 25 02/17/2025 CBC WITH DIFFE RENTI AL/PL ATELE T lymphs 23 % not estab. normal Not Available [facility] ([facility]) [address] [place], [address], 02/19/2025 18:07:50 02/17/20 25 02/17/2025 CBC WITH DIFFE RENTI AL/PL ATELE T monocytes 6 % not estab. normal Not Available [facility] ([facility]) [address] [place], [address], 02/19/2025 18:07:50 02/17/20 25 02/17/2025 CBC WITH DIFFE RENTI AL/PL ATELE T eos 1 % not estab. normal Not Available [facility] ([facility]) [address] [place], [address], 02/19/2025 18:07:50 02/17/20 25 02/17/2025 CBC WITH DIFFE RENTI AL/PL ATELE T basos 0 % not estab. normal Not Available [facility] ([facility]) [address] [facility], [place], [address], 02/19/2025 18:07:50 02/17/20 25 02/17/2025 CBC WITH DIFFE RENTI AL/PL ATELE T immature cells [employer] Not Available [facility]) [address] [place], [address], 02/19/2025 18:07:50 02/17/20 25 02/17/2025 CBC WITH DIFFE RENTI AL/PL ATELE T neutrophils (absolute) 6.2 x10e3 /uL 1.4-7. 0 normal Not Available [facility] ([facility]) [address] [place], [address], 02/19/2025 18:07:50 02/17/20 25 02/17/2025 CBC WITH DIFFE RENTI AL/PL ATELE T lymphs (absolute) 2.1 x10e3 /uL 0.7-3. 1 normal Not Available [facility] ([facility]) [address] [place], [address], 02/19/2025 18:07:50 02/17/20 25 02/17/2025 CBC WITH DIFFE RENTI AL/PL ATELE T monocytes(ab solute) 0.5 x10e3 /uL 0.1-0. 9 normal Not Available [facility] ([facility]) [address] [place], [address], 02/19/2025 18:07:50 02/17/20 25 02/17/2025 CBC WITH DIFFE RENTI AL/PL ATELE T eos (absolute) 0.1 x10e3 /uL 0.0-0. 4 normal Not Available [facility] ([facility]) [address] [place], [address], 02/19/2025 18:07:50 02/17/20 25 02/17/2025 CBC WITH DIFFE RENTI AL/PL ATELE T baso (absolute) 0.0 x10e3 /uL 0.0-0. 2 normal Not Available [facility] ([facility]) [address] [place], [address], 02/19/2025 18:07:50 06/09/20 25 02/17/2025 CBC WITH DIFFE RENTI AL/PL ATELE T immature granulocytes 1 % not estab. Not Available [facility] ([facility]) [address] [facility], [place], [address], 02/19/2025 18:07:50 02/17/20 25 02/17/2025 CBC WITH DIFFE RENTI AL/PL ATELE T immature grans (abs) 0.1 x10e3 /uL 0.0-0. 1 Not Available [facility] ([facility]) [address] [facility], [place], [address], 02/19/2025 18:07:50 02/17/20 25 02/17/2025 CBC WITH DIFFE RENTI AL/PL ATELE T NRBC [employer] Not Available [facility] ([facility]) [address] [facility], [place], [address], 02/19/2025 18:07:50 02/17/20 25 02/17/2025 CBC WITH DIFFE RENTI AL/PL ATELE T hematology comments: [employer]URES Not Available [facility] ([facility]) [address] [facility], [place], [address], 02/19/2025 18:07:50 02/17/20 25 02/17/2025 COMP. METAB OLIC PANEL (14) glucose 81 mg/dL 70-99 normal Not Available [facility] ([facility]) [address] [facility], [place], [address], 02/19/2025 18:07:51 02/17/20 25 02/17/2025 COMP. METAB OLIC PANEL (14) BUN 13 mg/dL 6-20 normal Not Available [facility] ([facility]) [address] [facility], [place], [address], 02/19/2025 18:07:51 02/17/20 25 02/17/2025 COMP. METAB OLIC PANEL (14) creatinine 1.08 mg/dL 0.76-1 .27 normal Not Available [facility] ([facility]) [address] [facility] [place], [address], 02/19/2025 18:07:51 02/17/20 25 02/17/2025 COMP. METAB OLIC PANEL (14) eGFR 96 mL/mi n/1.7 3 >59 normal Not Available [facility] ([facility]) [address] [facility] [place], [address], 02/19/2025 18:07:51 02/17/20 25 02/17/2025 COMP. METAB OLIC PANEL (14) BUN/creatini ne ratio 12 9-20 normal Not Available [facility]) [address] [facility] [place], [address], 02/19/2025 18:07:51 02/17/20 25 02/17/2025 COMP. METAB OLIC PANEL (14) sodium 140 mmol/ L 134-14 4 normal Not Available [facility] ([facility]) [address] [facility] [place], [address], 02/19/2025 18:07:51 02/17/20 25 02/17/2025 COMP. METAB OLIC PANEL (14) potassium 4.6 mmol/ L 3.5-5. 2 normal Not Available [facility] ([facility]) [address] [facility] [place], [address], 02/19/2025 18:07:51 02/17/20 25 02/17/2025 COMP. METAB OLIC PANEL (14) chloride 102 mmol/ L 96-106 normal Not Available [facility] ([facility]) [address] [facility] [place], [address], 02/19/2025 18:07:51 02/17/20 25 02/17/2025 COMP. METAB OLIC PANEL (14) carbon dioxide, total 21 mmol/ L 20-29 normal Not Available [facility] ([facility]) [address] [place], [address], 02/19/2025 18:07:51 02/17/20 25 02/17/2025 COMP. METAB OLIC PANEL (14) calcium 9.8 mg/dL 8.7-10 .2 normal Not Available [facility] ([facility]) [address] [place], [address], 02/19/2025 18:07:51 02/17/20 25 02/17/2025 COMP. METAB OLIC PANEL (14) protein, total 7.3 g/dL 6.0-8. 5 normal Not Available [facility] ([facility]) [address] [facility] [place], [address], 02/19/2025 18:07:51 02/17/20 25 02/17/2025 COMP. METAB OLIC PANEL (14) albumin 4.6 g/dL 4.3-5. 2 normal Not Available [facility] ([facility]) [address] [facility] [place] [place], [address], 02/19/2025 18:07:51 02/17/20 25 02/17/2025 COMP. METAB OLIC PANEL (14) globulin, total 2.7 g/dL 1.5-4. 5 Not Available [facility] ([facility]) [address] [facility] [place], [address], 02/19/2025 18:07:51 02/17/20 25 02/17/2025 COMP. METAB OLIC PANEL (14) bilirubin, total 0.4 mg/dL 0.0-1. 2 normal Not Available [facility] ([facility]) [address] [facility] [place] [place], [address], 02/19/2025 18:07:51 02/17/20 25 02/17/2025 COMP. METAB OLIC PANEL (14) alkaline phosphatase 75 IU/L 44-121 normal Not Available [facility]) [address] [facility] [place], [address], 02/19/2025 18:07:51 02/17/20 25 02/17/2025 COMP. METAB OLIC PANEL (14) AST (SGOT) 20 IU/L 0-40 normal Not Available [facility] ([facility]) [address] [facility], [place], [address], 02/19/2025 18:07:51 02/17/20 25 02/17/2025 COMP. METAB OLIC PANEL (14) ALT (SGPT) 34 IU/L 0-44 normal Not Available [facility] ([facility]) [address] [facility], [place], [address], 02/19/2025 18:07:51 02/17/20 25 02/18/2025 METAN EPHRI ANGI, PHEOC HROMO CYT creatinine, random U 210.2 mg/dL not estab. Not Available [facility] ([facility]) [address] [facility], [place], [address], 02/19/2025 18:07:51 02/17/20 25 02/19/2025 METAN EPHRI ANGI, PHEOC HROMO CYT normetanephr ine, ur 175 ug/L undefi fabien Not Available [facility] ([facility]) [address] [facility], [place], [address], 02/19/2025 18:07:51 02/17/20 25 02/19/2025 METAN EPHRI ANGI, PHEOC HROMO CYT metanephrine , ur 112 ug/L undefi fabien Not Available [facility] ([facility]) [address] [place], [address], 02/19/2025 18:07:51 02/17/20 25 02/19/2025 METAN EPHRI ANGI, PHEOC HROMO CYT metaneph/cre at ratio 0.2 ug/mg _crea t 0.0-1. 0 Not Available [facility] ([facility]) [address] [place], [address], 02/19/2025 18:07:51 02/17/20 25 02/17/2025 VITAM IN B12 AND FOLAT E vitamin B12 526 pg/mL 232-12 45 normal Not Available [facility] ([facility]) [address] [facility], [place], [address], 02/19/2025 18:07:52 02/17/20 25 02/17/2025 VITAM IN B12 AND FOLAT E folate (folic acid), serum 8.0 NG/mL >3.0 normal A serum folat e terence ntrat ion of less than 3.1 ng/mL is consi dered to repre sent clini diana defic iency . Not Available [facility] ([facility]) [address] [facility], [place], [address], 02/19/2025 18:07:52 02/17/20 25 02/17/2025 HEMOG LOBIN A1C hemoglobin A1C 5.3 % 4.8-5. 6 normal Predi abete s: 5.7 - 6.4 Diabe yash: >6.4 Glyce mookie contr ol for adult s with diabe yash: <7.0 Not Available [facility] ([facility]) [address] [facility], [place], [address], 02/19/2025 18:07:52 02/17/20 25 02/17/2025 MAGNE SIUM magnesium 2.1 mg/dL 1.6-2. 3 normal Not Available [facility] ([facility]) [address] [facility], [place], [address], 02/19/2025 18:07:53 02/08/20 25 02/07/2025 XR, chest , 1 view No observ ation record ed. [email or web address] [facility] [address], [place], [address], 02/09/2025 09:35:41 02/09/20 25 02/07/2025 elect morris murray am, navdeep ne ECG, 12 leads min No observ ation record ed. [email or web address] [facility] [address], [place], [address], 02/09/2025 09:35:18 02/10/20 25 02/09/2025 CT, angio gram, chest , w/ contr ast No observ ation record ed. [email or web address] [address], [place], [address], 02/09/2025 17:09:18 02/14/20 25 02/13/2025 US, doppl er echoc ardio gram No observ ation record ed. [email or web address] [address], [place], [address], 02/13/2025 11:51:29 02/14/20 25 02/13/2025 CT, angio gram, coron carley arter ies, w/ contr ast No observ ation record ed. [address], [place], [address], 02/13/2025 14:48:14 02/15/20 25 02/12/2025 elect morris murray am No observ ation record ed. [address], [place], [address], 02/16/2025 08:55:16 02/20/20 25 02/19/2025 US, yusef saul id arter y No observ ation record ed. [email or web address] [facility] [address], [place], [address], 02/20/2025 14:53:58 Result Notes None recorded. Problems Name Problem SNOMED Code Status Onset Date Resolution Date Notes Provider Name and Address Organization Details Recorded Time Viral syndrome 242929753 Active 2022 HERB GARCIA-DAHIANA [address] [place] [address], [address] , [place] [employer] 3 11:54:31 Syncope 465777158 Active 2024 Kristin Barbosa APRN [address] [place], [address] , [employer] 5 15:28:10 Snoring 38816177 Active 2024 Kristin Barbosa APRN [address] [place], [address] , [employer] 5 15:28:20 Generali zed anxiety disorder 10276032 Active 2018 Problem Code: F41.1; Problem Code Type: ICD-10; Not Available [facility] 2 22:50:14 Acute suppurat charis otitis media 750623695 Completed 201806/04/2019 Not Available [facility] 2 22:50:14 Hyperten sive disorder 58066761 Active 2019 Problem Code: I10; Problem Code Type: ICD-10; Not Available [facility] 2 22:50:14 Acute frontal sinusiti s 80250139 Completed 201901/29/2020 Problem Code: J01.10; Problem Code Type: ICD-10; Not Available [facility] 2 22:50:14 Acute pansinus itis 1015492 Completed 201806/04/2019 Problem Code: J01.40; Problem Code Type: ICD-10; Not Available [facility] 2 22:50:14 Streptoc occal sore throat 32340178 Active 2018 Problem Code: J02.0; Problem Code Type: ICD-10; Not Available [facility] 2 22:50:14 Disorder of upper respirat ory system 367375926 Active 2021 Problem Code: J06.9; Problem Code Type: ICD-10; Not Available [facility] 2 22:50:14 Disorder of upper respirat ory system 653479391 Completed 201806/04/2019 Problem Code: J06.9; Problem Code Type: ICD-10; Not [facility] Cough 95897519 Active 2019 Problem Code: R05; Problem Code Type: ICD-10; Not Available [facility] 22:50:15 Pyrexia of unknown origin 3991714 Active 2018 Problem Code: R50.9; Problem Code Type: ICD-10; Not Available [facility] 22:50:15 Headache 40823321 Active 2019 Problem Code: R51; Problem Code Type: ICD-10; Not Available [facility] 22:50:15 Syncope and collapse 623999511 Completed 201904/19/2021 Problem Code: R55; Problem Code Type: ICD-10; Not Available [facility] 22:50:15 Acute pharyngi tis 002513456 Active 2021 Not Available [facility] 22:50:15 Acute bronchit is 92557903 Active 2020 Problem Code: J20.9; Problem Code Type: ICD-10; Not Available [facility] 22:50:16 Body mass index 30+ - obesity 526443153 Active 2019 Problem Code: Z68.35; Problem Code Type: ICD-10; Not Available [facility] 22:50:16 Problem Notes None recorded. Medical Equipment None Reported. Allergies Allergen ID Allergen Name Allergen Category Reaction Reaction Severity Criticality Documentation Date Start Date Code Code System Note Provider Name and Address Organization Details Recorded Time 37260 codeine sulfate medicatio n Not available Not available Not available 05/16/2022 63389 RxNorm Not Available [facility] 22:54:23 Medications Name Sig Start Date Stop [...] Updated DateTime 5 177.8 cm 35.2 kg/m2 315693. 13 g 99.3 [degF] 97 /min 95 % 95 % 128 mm[Hg] 82 mm[Hg] Pattie Marsh [place] 5 15:51:03 Date Recorded Body height Body mass index (BMI) Body weight Body temperature Heart rate Oxygen saturation Oxygen saturation in Arterial blood by Pulse oximetry Systolic blood pressure Diastolic blood pressure Provider Name and Address Organization Details Last Updated DateTime 5 177.8 cm 38 kg/m2 507021. 98 g 97.2 [degF] 64 /min 97 % 97 % 111 mm[Hg] 72 mm[Hg] [employer] 5 14:41:39 Date Recorded Oxygen saturation Oxygen saturation in Arterial blood by Pulse oximetry Heart rate Body temperature Body weight Body mass index (BMI) Body height Systolic blood pressure Diastolic blood pressure Provider Name and Address Organization Details Last Updated DateTime 3 99 % 99 % 84 /min 98.5 [degF] 342630. 49 g 39.6 kg/m2 177.8 cm 138 mm[Hg] 87 mm[Hg] JOLENE VARELA [place] 3 11:31:02 Date Recorded Body weight Body temperature Heart rate Oxygen saturation Oxygen saturation in Arterial blood by Pulse oximetry Systolic blood pressure Diastolic blood pressure Provider Name and Address Organization Details Last Updated DateTime 4 665128. 62 g 99.5 [degF] 92 /min 97 % 97 % 121 mm[Hg] 70 mm[Hg] [employer] 4 13:16:06 Social History Question Answer Notes LastModified by Organizat ion Details LastModified Time Tobacco Smoking Status Never Smoker SocialHis vickHeath ion: 'Tobacco/ Alcohol/S upplement s'; His [place] nse: 'Never Smoker'; Not Available [facility] 05/16/2022 22:55:58 In The 14 Days Before Symptom Onset, Have You Had Close Contact With A Laboratory-confir med COVID-19 While That Case Was Ill? No [email or web address] Information not available 07/21/2023 In The 14 Days Before Symptom Onset, Have You Had Close Contact With A Person Who Is Under Investigation For COVID-19 While That Person Was Ill? No [email or web address] Information not available 07/21/2023 Have You Been To An Area Known To Be High Risk For COVID-19? No Information not available 07/21/2023 What Was The Date Of Your Most Recent Tobacco Screening? 02/16/2025 [email or web address] Information not available 02/16/2025 What Is Your Relationship Status? Information not available 07/21/2023 Has Tobacco Cessation Counseling Been Provided? No [email or web address] Information not available 07/21/2023 Have You Recently Traveled Abroad? No [email or web address] Information not available 07/21/2023 Sex: Male Functional Status Question Answer Note LastModified by Organization D etails LastModified Time Do you or have you ever used any other forms of tobacco or nicotine? No [email or web address] Information not available 07/21/2023 Mental Status None [...] adolescent or pediatric 7 completed Not Available [facility] 02/16/2025 14:34:36 OPV 8 completed Not Available [facility] 02/16/2025 14:34:36 Hep B, adolescent or pediatric 8 completed Not Available [facility] 02/16/2025 14:34:36 MMR 8 completed Not Available [facility] 02/16/2025 14:34:36 varicella 8 completed Not Available [facility] 02/16/2025 14:34:36 DTaP, unspecified formulation 9 completed Not Available [facility] 02/16/2025 14:34:36 Hib (PRP-OMP) 9 completed Not Available [facility] 02/16/2025 14:34:36 Past Encounters Encounter ID Performer Location Encounter Start Date Encounter Closed Date Diagnosis/Indication Diagnosis SNOMED-CT Code Diagnosis ICD10 Code Diagnosis Note [id number] FRANCY CARLTON [place] [id number] 0 07/21/2023 11:17:29 07/21/2023 11:54:10 Cough 18761788 R05.9 Viral syndrome 885122130 B34.9 [id number] [place] [id number] 08/11/2024 12:53:07 08/11/2024 13:41:24 Acute sinusitis 31927287 J01.90 Patient likely has an acute bacterial [...] as below. Acute righ t otitis media [id number] H66.91 Acute bronchitis [id number] 2 J20.9 Body mass index 30+ - obesity [id number] Z68.39 [id number] [place] [id number] 10/14/2024 15:26:53 10/14/2024 16:52:19 Cough [id number] R05.9 Acute sero us otitis media of bilateral ears [id number] H65.03 Body mass index 30+ - obesity [id number] Z68.35 [id number] Kristin Barbosa APRN [address] [id number] 02/16/2025 14:34:05 02/16/2025 16:03:19 Syncope [id number] R55 Keep appointmen t with cardiology and [...] encouraged adequate hydration. Avoidance of caffeine. Snoring [id number] R06.83 Health Concerns Section Related Observation LastModified by Organization Detai ls LastModified Time None Recorded Concern Status LastModified by Organization Details LastModified Time None Recorded Advance Directives Directive None Recorded Payers Insurance Date Sequence Insurance Name Policy Number Policy Farias Covered Member ID Farias Member ID Guarantor Name 10/13/2024 1 *SELF PAY* Sh ellia Moosic 08/11/2024 SLIDING FEE SCHEDULE - DISCOUNT Shellia Moosic 02/16/2025 1 [place] [facility] [place] [id number] Abdiaziz Hodge [id number] Shellia Moosic 02/16/2025 1 [place] [id number] Abdiaziz Hodge [id number] Shellia Moosic 02/16/2025 1 [place] [employer] [employer] [facility] [place] [place] Abdiaziz Hodge [id number] Shellia Moosic Notes Date Note Type Note Provider Name and Address Organization Details Recorded Time 07/21/2023 text/html Cough and conges tion for the past 2-3 days. No fevers. No N/V/D. No sore throat. is and he would like to be tested for covid and flu. FRANCY VINCENT, PSYCHIATRIC AIDE INSTRUCTOR- [address] [place], [address], [place] 07/21/2023 11:55:54 08/11/2024 text/html Upper Respirator y SymptomsReported bypatient.Location:hea d; chest; throat; nasal; face Quality:productive cough;congested;wheezy cough;hurts to swallow;nasal discharge Severity:moderate Duration:symptoms lasting over 2 weeks Onset/Timing:gradual; date of onset: (began 4 weeks ago) Context:no sick contacts; no foreign travel; non-smoker;allergies Alleviating Factors:analgesics; antihistamines; decongestant Associated Symptoms:no chest pain;yellow sputum;wheezing;fatigu e;morning cough;sore throat;headache;malais e Kristin Barbosa, MAIL PROCESSING EQUIPMENT MECHANIC [address] [place], [address], [employer] 08/11/2024 13:42:27 10/14/2024 text/html 29 year [...] and will return for worsening symptoms. Belinda Mckinney, MAIL PROCESSING EQUIPMENT MECHANIC [address] [place], [address], [employer] 10/14/2024 16:32:39 02/16/2025 text/html Hospitalization Contact RecordReported bypatient.Follow UpHospital: ([facility] date of discharge: (Please enter in format [...] at home. He is wearing a 14-day director of cardiac rehabilitation that was placed before he was discharged from hospital. He has significant family history of cardiac disease. His mother had a [place] in her early 50s but she was a heavy smoker. His states he does snore loudly and she does witness him have brief periods of apnea. Kristin Barbosa APRN [address] [facility], [place], [address], [facility] [employer] 02/16/2025 17:32:33
== END 2025-02-27 23:59 | disposition home or self-care (01) ==
LOC: RAD 10:51
PROVIDERS: PCP Nurse Practitioner Family; Visit Provider Nurse Practitioner Family
DX: R55 Syncope and collapse (principal)
CPT/HCPCS: 70450